=== PATIENT | female | born 1935 | race Hispanic/Latino ===

== ENCOUNTER 2016-11-10 14:13 | Inpatient (IN) | payer MEDICARE ==
[2016-11-10 14:33] VITALS: BMI 49.4
--- NOTE | 2016-11-10 15:25 | RAD ---
HISTORY: cough COMPARISON: 01/12/2015 FINDINGS: LUNGS: There is a patchy infiltrate in the right lower lobe consistent with pneumonia PLEURA: No significant pleural effusion identified, no pneumothorax apparent. CARDIOVASCULAR: Normal. OSSEOUS STRUCTURES: No significant abnormalities. VISUALIZED UPPER ABDOMEN: Normal. OTHER FINDINGS: None. IMPRESSION: There is a patchy infiltrate in the right lower lobe consistent with pneumonia
--- NOTE | 2016-11-10 15:38 | ED PDOC ---
Arrival/HPI - General Chief Complaint: Lower Extremity Problem/Injury Time Seen by Provider: 11/10/16 14:20 - History of Present Illness Narrative History of Present Illness (Text): 11/10/16 15:35 80-year-old female presents the emergency department with 1 month duration worsening shortness of breath, dyspnea on exertion, bilateral lower extremity swelling, and weight gain. No relieving or exacerbating factors. Patient denies chest pain, denies fevers or chills, no other complaints. Past Medical History - Provider Review Nursing Documentation Reviewed: Yes - Infectious Disease Hx of Infectious Diseases: None - Tetanus Immunization Tetanus Immunization: Unknown - Cardiac Hx Cardiac Disorders: Yes Hx Hypertension: Yes - Pulmonary Hx Respiratory Disorders: No - Neurological Hx Neurological Disorder: No - HEENT Hx Epistaxis: (today) - Renal Hx Renal Disorder: No - Endocrine/Metabolic Hx Endocrine Disorders: Yes Hx Diabetes Mellitus Type 2: Yes - Hematological/Oncological Hx Blood Disorders: No - Integumentary Hx Dermatological Disorder: Yes Hx Cellulitis: Yes (both legs) - Musculoskeletal/Rheumatological Hx Musculoskeletal Disorders: No Hx Falls: No - Gastrointestinal Hx Gastrointestinal Disorders: No - Genitourinary/Gynecological Hx Genitourinary Disorders: No - Psychiatric Hx Psychophysiologic Disorder: No Hx Substance Use: No - Surgical History Hx Section: Yes Hx Orthopedic Surgery: Yes Hx Tonsillectomy: Yes - Anesthesia Hx Anesthesia: Yes Hx Anesthesia Reactions: No Hx Malignant Hyperthermia: No - Suicidal Assessment Feels Threatened In Home Enviroment: No Family/Social History Family/Social History: No Known Family HX Smoking Status: Never Smoked Hx Alcohol Use: No Hx Substance Use: No Hx Substance Use Treatment: No Allergies/Home Meds Allergies/Adverse Reactions: Allergies No Known Allergies Allergy (Verified 11/10/16 14:33) Home Medications: Home Meds Medication Instructions Recorded Confirmed Digoxin [Lanoxin] 125 mcg PO DAILY 11/10/16 11/10/16 Furosemide [Lasix] 40 mg PO DAILY 11/10/16 11/10/16 [place]-3 Fatty Acids [Fish Oil] 1,000 mg PO BID 11/10/16 11/10/16 Valsartan [Diovan] 320 mg PO DAILY 11/10/16 11/10/16 Warfarin [Coumadin] 3 mg PO DAILY 11/10/16 11/10/16 diltiaZEM [Cardizem] 360 mg PO DAILY 11/10/16 11/10/16 Physical Exam - Physical Exam Narrative Physical Exam (Text): - Review of Systems Constitutional: Normal. absent: Fatigue, Weight Change, Fevers Eyes: Normal ENT: denies sore throat, denies tristhmus Respiratory: Dyspnea on exertion absent: Cough, Sputum Cardiovascular: Lower extremity swelling. absent: Chest Pain, Palpitations, Syncope Gastrointestinal: Normal. absent: Abdominal Pain, Diarrhea, Nausea, Vomiting Genitourinary: Normal. absent: Dysuria, Frequency, Hematuria, vaginal bleeding Musculoskeletal: Normal. absent: Arthralgias, Back Pain, Neck Pain Skin: no rashes, no erythema Neurological: absent: Focal Weakness Endocrine: Normal Hemo/Lymphatic: Normal Psychiatric: No suicidal or homicidal ideations Physical exam Patient appears age appropriate in no distress, speaking full sentences without difficulty - Systems Exam Head: Present: Atraumatic, Normocephalic Pupils: Present: PERRL Extroacular Muscles: Present: EOMI Conjunctiva: Present: Normal Mouth: Present: Moist Mucous Membranes Neck: Present: Normal Range of Motion. No: MIDLINE TENDERNESS, Paraspinal Tenderness Respiratory/Chest: Present: Clear to Auscultation, Good Air Exchange. No: Respiratory Distress, Accessory Muscle Use, Tachypneic Cardiovascular: Present: Regular Rate and Rhythm, Normal S1, S2, Peripheal Pulses Present. No: Murmurs Abdomen: Present: Normal Bowel Sounds. No: Tenderness, Distention, Peritoneal Signs, Rebound, Guarding Back: Present: Normal Inspection. No: Midline Tenderness, Paraspinal Tenderness Upper Extremity: Present: Normal Inspection. No: Cyanosis, Edema Lower Extremity: Present: Bilateral pitting edema with venous stasis dermatitis changes Neurological: Present: GCS=15, Speech Normal, cranial nerves II through XII fully intact with no cerebellar abnormality, neurosensory fully intact. No focal neurological deficits. Skin: Present: Warm, Dry, Normal Color. No: Rashes Lymphatic: Present: OX3, NI, NC Psychiatric: Present: Alert, Oriented x 3, Normal Insight, Normal Concentration Vital Signs Reviewed: Yes Vital Signs Temp Pulse Resp BP Pulse Ox 11/10/16 17:20 151/81 H 11/10/16 14:35 97.8 F 84 16 149/77 96 Temperature: Afebrile Blood Pressure: Normal Pulse: Regular Respiratory Rate: Normal Appearance: Positive for: Well-Appearing Pain Distress: None Mental Status: Positive for: Alert and Oriented X 3 Medical Decision Making ED Course and Treatment: 11/10/16 15:38 80-year-old female with dyspnea exertion, weight gain, bilateral lower extremity swelling on examination. Differential diagnosis includes but not limited to: CHF versus renal insufficiency versus venous insufficiency Discussed with Dr. Sanchez EKG shows a irregular rhythm, atrial fibrillation, rate controlled, no ST segment elevations. No changes versus 01/12/15. Interpreted by me. 11/10/16 16:21 CXR Internet Researcher : Jesus Tyson MD IMPRESSION: There is a patchy infiltrate in the right lower lobe consistent with pneumonia 11/10/16 17:[address] Sanchez, plan to admit to telemetry for community acquired pnemonia, CHF, venous stasis dermatitis pt has neg. DVT b/l per prelim US read pt and family aware of and agree with plan US Extremities Internet Researcher : Darinel Marks MD IMPRESSION: No sonographic evidence for deep venous thrombosis in the visualized segments of both lower extremities. Limited study. - Lab Interpretations Lab Results: 11/10/16 15:45 11/10/16 15:45 Lab Results 11/10/16 15:45: WBC 6.6, RBC 4.31, Hgb 12.7, Hct 37.5, MCV 87.0, MCH 29.5, MCHC 33.9, RDW 15.0 H, Plt Count 239, MPV 9.5, Gran % 67.7, Lymph % (Auto) 25.6, [place] % (Auto) 5.5, Eos % (Auto) 0.9 L, Baso % (Auto) 0.3, Gran # 4.47, Lymph # 1.7, [place] # 0.4, Eos # 0.1, Baso # 0.02, PT 19.1 H, INR 1.77 H, APTT 32.5 H, Sodium 138, Potassium 4.9, Chloride 101, Carbon Dioxide 27, Anion Gap 15, BUN 20 , Creatinine 0.8, Est GFR ( Amer) > 60, Est GFR (Non-Af Amer) > 60, Random Glucose 129 H, Calcium 9.7, Total Bilirubin 0.8, AST 33, ALT 43, Alkaline Phosphatase 93, Lactate Dehydrogenase 655, Total Creatine Kinase 67, Troponin I < 0.01, NT-Pro-B Natriuret Pep 761 H, Total Protein 8.0, Albumin 4.3 , Globulin 3.7, Albumin/Globulin Ratio 1.2 - RAD Interpretation Radiology Orders: 11/10/16 14:49 CHEST PORTABLE [RAD] Stat 11/10/16 15:30 DUPLEX LOWER EXTRM VEIN BILAT [US] Stat - Medication Orders Current Medication Orders: Discontinued Medications Aspirin (Aspirin Chewable) 324 mg PO STAT STA Stop: 11/10/16 15:30 Last Admin: 11/10/16 16:56 Dose: 324 MG Furosemide (Lasix) 40 mg IVP STAT STA Stop: 11/10/16 15:30 Last Admin: 11/10/16 17:20 Dose: 40 MG MAR Blood Pressure Document 11/10/16 17:20 HI (Rec: 11/10/16 17:[id number]) Blood Pressure Blood Pressure (100/60-150/90) 151/81 IVP Administration Document 11/10/16 17:20 HI (Rec: 11/10/16 17:21 [place] [id number]) Charges for Administration # of IVP Administrations 1 Azithromycin (Zithromax 500mg In Ns) 250 mls @ 166.667 mls/hr IV STAT STA PRN Reason: Protocol Stop: 11/10/16 17:48 Ceftriaxone Sodium (Rocephin 1 Gram Ivpb) 100 mls @ 200 mls/hr IV STAT STA PRN Reason: Protocol Stop: 11/10/16 16:48 Last Admin: 11/10/16 17:21 Dose: 200 MLS/HR eMAR Start Stop Document 11/10/16 17:21 HI (Rec: 11/10/16 17:21 [place] [id number]) Intravenous Solution Start Date 11/10/16 Start Time 17:21 Nitroglycerin (Nitrostat Sl Tab) 0.3 mg SL STAT STA Stop: 11/10/16 15:30 Last Admin: 11/10/16 17:21 Dose: 0.3 MG Disposition/Present on Arrival - Present on Arrival Any Indicators Present on Arrival: No History of DVT/PE: No History of Uncontrolled Diabetes: No Urinary Catheter: No History of Decub. Ulcer: No History Surgical Site Infection Following: None - Disposition Have Diagnosis and Disposition been Completed?: Yes Diagnosis: Pneumonia Disposition: HOSPITALIZED Disposition Time: 17:08 Patient Plan: Admission Patient Problems: Current Active Problems Problem Status Diagnosed Pneumonia Acute Condition: FAIR
[2016-11-10 15:56] LABS: ADD MANUAL DIFF? NO
[2016-11-10 16:02] LABS: BASO # 0.02 K/mm3 (0.0-2.0); BASO % 0.3 % (0.0-3.0); EOS # 0.1 (0.0-0.7); EOS % 0.9 % (1.5-5.0); GRAN # 4.47 (1.4-6.5); GRAN % 67.7 % (50.0-68.0); HEMATOCRIT 37.5 % (36.0-48.0); LYMPH # 1.7 (1.2-3.4); LYMPH % 25.6 % (22.0-35.0); MEAN CORPUSCULAR HEMOGLOBIN 29.5 pg (25.0-35.0); MEAN CORPUSCULAR HGB CONC 33.9 g/dl (31.0-37.0); MEAN PLATELET VOLUME 9.5 fl (7.0-11.0); MONO # 0.4 (0.1-0.6); MONO % 5.5 % (1.0-6.0); PLATELET COUNT 239 10^3/uL (120.0-450.0); WHITE BLOOD COUNT 6.6 10^3/ul (4.5-11.0)
[2016-11-10 16:11] LABS: INR 1.77 (0.93-1.08); PARTIAL THROMBOPLASTIN TIME 32.5 Seconds (23.7-30.8)
[2016-11-10] MEDS ORDERED: cefTRIAXone 1 gm 100 ML IV STA (16:19)
[2016-11-10] MEDS ORDERED: Azithromycin 500MG/NS 250ml 250 ML IV STA (16:19)
[2016-11-10 16:20] LABS: ALB/GLOB RATIO 1.2 (1.1-1.8); ALKALINE PHOSPHATASE 93 U/L (38-133); ALT/SGPT 43 U/L (7-56); AST/SGOT 33 U/L (15-39); BILIRUBIN,TOTAL 0.8 mg/dL (0.2-1.3); BLOOD UREA NITROGEN 20 mg/dL (7-21); CALCIUM 9.7 mg/dL (8.4-10.5); CARBON DIOXIDE 27 mmol/L (21-33); CHLORIDE 101 mmol/L (98-107); GFR AFRICAN-AMERICAN > 60; GLUCOSE,RANDOM 129 mg/dL (70-110); POTASSIUM 4.9 mmol/L (3.6-5.0); SODIUM 138 mmol/L (132-148)
[2016-11-10 16:33] LABS: TROPONIN I < 0.01 ng/mL
--- NOTE | 2016-11-10 17:52 | US ---
HISTORY: Leg pain and swelling. Evaluate for DVT PHYSICIAN(S): Darinel Goddard MD. TECHNIQUE: Duplex sonography and color-flow Doppler with graded compression were used to evaluate the deep venous systems of both lower extremities. The exam is very limited by body habitus and edema. FINDINGS: The visualized deep venous systems of both lower extremities are sonographically normal and compressible. Normal wave forms and augmentation are seen. There is no sonographic evidence for deep venous thrombosis in the visualized segments of both lower extremities. IMPRESSION: No sonographic evidence for deep venous thrombosis in the visualized segments of both lower extremities. Limited study.
--- NOTE | 2016-11-10 20:02 | HP ---
HISTORY OF PRESENT ILLNESS: This is an 80-year-old female presented to the office today with at delmy t a 2-week history of increasing swelling and edema of the lower extremities associated with a raised , red, pebbly rash on both lower extremities. She also complains of difficulty walking and she also states that she has been gaining weight. She also states that her sugars have been elevated. She al so states that she has been having some exertional dyspnea. She denies any history of chest pain, fe michael, chills or cough. PAST MEDICAL HISTORY: Urinary tract infection, obesity, cellulitis of the lower extremities, hyperte nsion, congestive heart failure, atrial fibrillation. SOCIAL HISTORY: She is a nonsmoker, nondrinker, nondrug user. ALLERGY HISTORY: She denies. HOME MEDICATIONS: Consist of Cardizem 360 mg daily, fish oil 1000 mg b.i.d., digoxin 125 mcg daily, Diovan 320 mg daily, Lasix 40 mg daily and warfarin 3 mg daily. REVIEW OF SYSTEMS: Twelve systems are reviewed. Pertinent findings are that the patient has some ex ertional dyspnea. There is marked edema of the lower extremities with erythema and a raised pebbly r reuben on both lower legs. PHYSICAL EXAMINATION: VITAL SIGNS: Blood pressure is 149/77, oxygen saturation is reported at 96% on room air. Her respir atory rate is 16, her pulse is 84, temperature is 97.8. GENERAL: She is alert and oriented x 3. NECK: Supple. LUNGS: Show rhonchi with diminished breath sounds at the bases, right more than left. HEART: Irregular S1, S2 rhythm with a grade II/ systolic murmur. ABDOMEN: Soft, obese with positive bowel sounds. EXTREMITIES: Shows 3+ edema with erythema of the lower extremities with a raised pebbly rash. LABORATORY DATA: Shows normal electrolytes. BUN is 20, creatinine is 0.8. Random blood sugar is 12 9. Troponin is less than 0.01. She has a BNP of 761. Her PT is 19.1 with an INR 1.77 and a PTT is 32.5. CBC shows a WBC of 6.6, RBC 4.31, hemoglobin 12.7, hematocrit 37.5, platelet count 239. Ultra sound of the lower extremities to rule out DVT is reported as being negative. A chest x-ray read by radiology is read as showing an infiltrate in the right lower lobe of the lung. IMPRESSION: An 80-year-old female with exertional dyspnea, edema of the lower extremities, erythema of the lower extremities with a pebbly rash. She also states that she has been getting some discomfo rt in the right shoulder with elevation. 1. Right lung infiltrate. Must consider community-acquired pneumonia versus other opportunistic inf ections. 2. Elevated BNP with atrial fibrillation and edema of the lower extremities, must consider CHF in th e setting of a patient with a history of atrial fibrillation and arteriosclerotic heart disease and v alvular heart disease. 3. Non-insulin dependent diabetes. 4. Cellulitis of the lower extremities. The patient will get rizzo cultured. Consults will be requested with appropriate consultants. The patient has been requested to be on tel emetry given her clinical status and the Emergency Room physician concurs, actually the Emergency Kathryn pedroza physician recommended it. eBbe Sanchez MD cc: [id number] TT: 11/10/2016 20:02:21 wi
--- NOTE | 2016-11-10 21:41 | CARD ---
APPROVED REPORT EKG Measurement Heart [id number] <Conclusion> Atrial fibrillation Rightward axis Possible Anterior infarct, age undetermined Abnormal ECG
[2016-11-11 07:06] LABS: INR 1.63 (0.93-1.08); PARTIAL THROMBOPLASTIN TIME 30.7 Seconds (23.7-30.8)
[2016-11-11 07:12] LABS: HEMATOCRIT 35.8 % (36.0-48.0); MEAN CELL VOLUME 87.5 fL (80.0-105.0); MEAN CORPUSCULAR HEMOGLOBIN 29.3 pg (25.0-35.0); MEAN CORPUSCULAR HGB CONC 33.5 g/dl (31.0-37.0); MEAN PLATELET VOLUME 9.8 fl (7.0-11.0); RED CELL DISTRIBUTION WIDTH 15.3 % (11.5-14.5)
[2016-11-11 07:25] LABS: BLOOD UREA NITROGEN 18 mg/dL (7-21); CARBON DIOXIDE 30 mmol/L (21-33); CHLORIDE 104 mmol/L (95-110); GFR AFRICAN-AMERICAN > 60; GLUCOSE,RANDOM 130 mg/dL (70-110); SODIUM 142 mmol/L (132-148)
[2016-11-11] MEDS ORDERED: MethylPREDNISolone Depo 40 mg/ml Inj IM ONE (09:11)
[2016-11-11] MEDS ORDERED: Bupivacaine 0.5% Inj(30mL) IJ ONE (09:11)
--- NOTE | 2016-11-11 09:32 | PN ---
DATE: 11/11/2016 An 80-year-old female. Nursing staff relates that on telemetry, there were no particular problems du ring the night, although she did complain of some right shoulder pain. This morning, she says that h er knee is feeling better. PHYSICAL EXAMINATION: VITAL SIGNS: She has got a temp of 98.2, her pulse is 73, her blood pressure is 148/70, her oxygen s aturation is 98% on room air, her respiratory rate is 19. GENERAL: She is alert and oriented x 3. NECK: Supple. LUNGS: Show bibasilar rhonchi, right more than left with diminished breath sounds at the bases. HEART: Has an irregular S1, S2 rhythm. ABDOMEN: Obese, soft with positive bowel sounds. EXTREMITIES: Show edema with a raised pebbly rash and mild erythema. LABORATORY DATA: Shows a WBC of 6, RBC 4.09, hemoglobin 12, hematocrit 35.8, platelet count 229. Th e PT is 17.6 with an INR 1.63, the PTT is 30.7. Chemistry shows normal electrolytes, the BUN is 18, creatinine is 0.8, random blood sugar was 130. Her digoxin level was 0.8. ASSESSMENT AND PLAN: 1. The patient's admission chest x-ray was read as showing a right lower lobe infiltrate. We will g et a PA and a lateral film. 2. Infectious disease is seeing the patient and is continuing the Rocephin and adding doxycycline. Procalcitonin has been ordered and cultures are pending. 3. Atrial fibrillation with edema of lower extremities with exertional dyspnea and mild elevation of the BNP. Cardiology consult is pending. 4. Rash of the lower extremities with raised pebbly rash and erythema, cellulitis, stasis dermatitis . We will get podiatry evaluation for wound care. Case has also been discussed with infectious dise ase. 5. Non-insulin dependent diabetes with a blood sugar of 130. Last hemoglobin A1c was 6.4. We will repeat the hemoglobin A1c and monitor the patient's blood sugars. She is on a cardiac diet with low carbohydrate consistency. Physical therapy request has been made. X-rays of the right shoulder and left knee will be requested and ortho evaluation as the patient sta baudilio that she is having pain when she raises her right arm and she has been having difficulty walking because of pain in the left knee. Bebe Sanchez MD cc: [id number] TT: 11/11/2016 09:31:55 Confirmation # [id number] Dictation # [id number] en
[2016-11-11] MEDS: diltiaZEM 180 mg/24 Hours CD Cap PO SCH (09:42)
--- NOTE | 2016-11-11 09:53 | CON ---
DATE: 11/11/2016 INDICATIONS: Shortness of breath, edema, pneumonia, atrial fibrillation. This is an 80-year-old woman admitted with a several-week history of increasing edema, dyspnea on exertion, was sent to the Emergency Room and found to have an infiltrate in the right lung as well as chronic atrial fibrillation, lower extremity edema with chronic cellulitic changes of both lower extremities. She reports weight gain, difficulty ambulating and discomfort in her legs. There is no orthopnea, PND, syncope, presyncope, lightheadedness, dizziness, vertigo, fever, chills, sputum production, hemoptysis, abdominal pain, nausea, vomiting, diarrhea, constipation, or melena. PAST MEDICAL HISTORY: Notable for chronic atrial fibrillation, she is on warfarin, chronic edema and cellulitic changes of the lower extremities, obesity , hypertension, diabetes, congestive heart failure, UTIs. There is no history of rheumatic fever, myocardial infarction, angina, stroke, TIA, gout. MEDICATIONS: At the time of admission include diltiazem, warfarin, Diovan, fish oil, digoxin and Lasix. ALLERGIES: There are no medication allergies. SOCIAL HISTORY: She lives at home. She is ambulatory. She dose not smoke. She does not drink alcohol significantly. FAMILY HISTORY: Noncontributory. REVIEW OF SYSTEMS: A 10-point otherwise unremarkable except as noted above. PHYSICAL EXAMINATION: GENERAL: She is a well-developed, elderly woman, sitting on her bed, on telemetry, in no acute distress. VITAL SIGNS: Notable for atrial fibrillation with a moderate ventricular response of 61-73 beats per minute. She is afebrile, blood pressure 148/70, respirations 19, O2 sat 98%. HEENT: Reveals no neck vein distention, thyromegaly, carotid bruits. Mucous membranes moist. Conjunctivae pink. NECK: Supple. LUNG MOSQUERA: Rhonchi, especially at the right base. HEART: Revealed an irregular rhythm, normal first and second heart sounds. Soft systolic murmur along the left sternal border. PMI not palpable. ABDOMEN: Obese, soft, bowel sounds present. No mass, organomegaly, tenderness , rebound, guarding, CVA tenderness or palpable abdominal aortic aneurysm. EXTREMITIES: Reveals chronically swollen, cellulitic lower extremities. NEUROLOGIC: She was awake, alert and oriented. PSYCHIATRIC: Normal as to mood and affect. SKIN: Chronic cellulitic changes both lower extremities from the ankles to the knees. LABORATORY AND IMAGING: A portable chest x-ray reveals a right lower lobe pneumonia. Extremity ultrasound reveals limited study, no DVT. EKG demonstrates atrial fibrillation with ST-T wave changes, basically unchanged from a prior EKG. White count normal, hemoglobin 12, hematocrit 35.8, platelet count normal. PT 19.1, repeat 17.6. INR 1.77, repeat 1.63. PTT 32.5, repeat 30.7. Electrolytes, BUN, creatinine, blood sugars unremarkable. LFTs unremarkable. CK 67. Troponin less than 0.01. BNP 761. Digoxin level 0.8. IMPRESSION: The patient is an 80-year-old woman with chronic atrial fibrillation, chronic lower extremity edema, admitted with increasing edema, dyspnea and pneumonia based on a chest x-ray. At this time, I agree with current plan. She is on telemetry. She has been cultured. She is getting antibiotics. There is an ID consultation. Her INR was low. She is getting extra warfarin. We will monitor the INRs on a daily basis while she is in the hospital and getting antibiotics. We will continue Cardizem, Diovan, digoxin. She is getting IV Lasix. We will monitor I's and O' s. We will check stool for occult blood. I will order an echocardiogram. We will monitor daily weights. She can be out of bed. I will follow along with you. I will make additional recommendations based on her clinical course. Anurag Jordan MD cc: [id number] TT: 11/11/2016 09:52:46 Confirmation # [id number] Dictation # [id number] en MTDD
--- NOTE | 2016-11-11 09:57 | CON ---
DATE: 11/11/2016 LOCATION: Room 276, bed 2. She is an 80-year-old female who came in the hospital. Consult ordered by Dr. Sanchez for right shoul genevieve pain and right knee pain. Presently, the patient is sitting in bed and experiencing some pain in the right shoulder with trigger point tenderness subacromial space and over the anterior capsule. S he has limited range of motion with pain with cross arm motion of that right shoulder, and the pain r adiates to her trapezius area and to the mid humerus area. This feels like it is clinically of bursi tis condition. We are going to get an x-ray to see if there is any calcium deposits in the right carine ulder or evidence of AC joint arthritis. 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 She also has right knee pain. I am going to order x-rays of her shoulder , and the knee was already ordered. Will reevaluate her this afternoon after the x-rays and possibly give her a Depo-Medrol injection if she needs it. Will start some gentle physical therapy for the b ursitis of right shoulder. Will see how she does with the cortisone shot later. Jesus Asher DO cc: [id number] TT: 11/11/2016 09:57:16 Confirmation # [id number] Dictation # [id number] rosita
--- NOTE | 2016-11-11 12:11 | RAD ---
PROCEDURE: Left Knee Radiographs. HISTORY: Pain. COMPARISON: None. FINDINGS: BONES: Normal. No fracture. JOINTS: There is joint space narrowing in the medial compartment. JOINT EFFUSION: None. OTHER FINDINGS: None. IMPRESSION: No acute fracture
--- NOTE | 2016-11-11 12:12 | RAD ---
PROCEDURE: Radiographs of the Right Shoulder HISTORY: pain COMPARISON: No prior. FINDINGS: BONES: Normal. No fracture. JOINTS: Normal. Glenohumeral and acromioclavicular joints preserved. No osteoarthritis. SOFT TISSUES: Normal. OTHER FINDINGS: None. IMPRESSION: No acute findings
--- NOTE | 2016-11-11 12:13 | RAD ---
HISTORY: CHF COMPARISON: 11/10/2016 TECHNIQUE: Chest PA and lateral FINDINGS: LUNGS: Improving infiltrate in the right lower lobe PLEURA: No significant pleural effusion identified. No pneumothorax apparent. CARDIOVASCULAR: Normal. OSSEOUS STRUCTURES: No significant abnormalities. VISUALIZED UPPER ABDOMEN: Normal. OTHER FINDINGS: None. IMPRESSION: Improving infiltrate in the right lower lobe
[2016-11-11] MEDS: cefTRIAXone 1 gm 100 ML IVPB SCH (13:04)
[2016-11-11] MEDS: Insulin Reg-LOW-Coverage SC SCH ×3 (13:04→22:15)
[2016-11-11] MEDS: Digoxin 125 mcg (0.125 mg) Tab PO SCH (13:32)
--- NOTE | 2016-11-11 14:18 | PROCN ---
DATE: 11/11/2016 ROOM: 276, bed 1 I had seen her this morning for right shoulder pain and to a lesser extent, knee pain. She just has recently had her x-rays, so I came back to see her for mainly the right shoulder pain, which x-ray sh ows osteoarthritis of AC joint, subacromial impingement and mild osteoarthritis right glenohumeral chad int. No evidence of rotator cuff tendinopathy, but I feel as though she has subacromial bursitis wit h discomfort with range of motion and increased pain with crossed arm test, which is associated with AC joint arthritis of that right shoulder. So I took the opportunity to inject the her right shoulde r with Depo-Medrol and Marcaine for symptomatic relief and hopefully that will help her. Her knee al so on the left side has osteoarthritis and I will get an x-ray of the right knee because that looks l yvette it has osteoarthritis too, just by the attitude of the knee with its bulbous and boggy synovium, but she has been having injections help her knees as an outpatient, as I do not want to add to that a s too much cortisone can aggravate the cartilage by itself and she was told she needs a total knee, b ut I do not think she is a surgical candidate at this time. So, I just injected the right shoulder b ursitis, which has symptoms of pain and weakness with Depo-Medrol and Marcaine. I will see how she i s tomorrow. Jesus Asher DO cc: [id number] TT: 11/11/2016 14:17:46 Confirmation # [id number] Dictation # [id number] en
--- NOTE | 2016-11-11 14:19 | CP.PCM.CON ---
<Jenelle Mcduffie - Last Filed: 11/11/16 14:13> History of Present Illness - History of Present Illness History of Present Illness: 80 y/o female with pmhx of CHT, HTN, afib, UTI, obesity, cellulitis of lower extremities seen at bedside with attending Dr. Alicea for bilateral leg swelling and redness. Patient states that her legs are mildly itchy and she scratches her legs, and mildly painful. Patient states that she has been admitted in the past and her legs were wrapped with silvadene and compressive dressings which helped the redness and swelling. Patient denies any other pedal or lower extremity complaints. She denies n/f/v/c/d/cp. Review of Systems - Constitutional Constitutional: As Per HPI Past Patient History - Infectious Disease Hx of Infectious Diseases: None - Tetanus Immunizations Tetanus Immunization: Unknown - Past Social History Smoking Status: Never Smoked - CARDIAC Hx Cardiac Disorders: Yes Hx Cardia Arrhythmia: Yes (atr. fib) Hx Congestive Heart Failure: Yes Hx Hypertension: Yes - PULMONARY Hx Respiratory Disorders: No - NEUROLOGICAL Hx Neurological Disorder: No - HEENT Hx Deafness: Yes (bilat hearing aids) Hx Epistaxis: Yes (1 year ago) - RENAL Hx Chronic Kidney Disease: No - ENDOCRINE/METABOLIC Hx Endocrine Disorders: Yes Hx Diabetes Mellitus Type 2: Yes - HEMATOLOGICAL/ONCOLOGICAL Hx Blood Disorders: No - INTEGUMENTARY Hx Dermatological Problems: Yes Other/Comment: cellulitis both lower legs - MUSCULOSKELETAL/RHEUMATOLOGICAL Hx Falls: No - GASTROINTESTINAL Hx Gastrointestinal Disorders: No - GENITOURINARY/GYNECOLOGICAL Hx Genitourinary Disorders: Yes Hx Urinary Tract Infection: Yes - PSYCHIATRIC Hx Psychophysiologic Disorder: No Hx Substance Use: No - SURGICAL HISTORY Hx Surgeries: Yes Hx Orthopedic Surgery: Yes (left knee arthroscopy) Other/Comment: tonsillectomy childhood, x1 - ANESTHESIA Hx Anesthesia: Yes Hx Anesthesia Reactions: No Hx Malignant Hyperthermia: No Meds Allergies/Adverse Reactions: Allergies Allergy/AdvReac Type Severity Reaction Status Date / Time No Known Allergies Allergy Verified 11/10/16 14:33 - Medications Medications: Current Medications Digoxin (Lanoxin) 0.125 mg PO 1400 [facility] Last Admin: 11/11/16 13:32 Dose: 0.125 mg Diltiazem HCl (Cardizem Cd) 360 mg PO DAILY [facility] Last Admin: 11/11/16 09:42 Dose: 360 mg Furosemide (Lasix) 40 mg IVP DAILY [facility] Last Admin: 11/11/16 13:33 Dose: 40 mg Ceftriaxone Sodium (Rocephin 1 Gram Ivpb) 100 mls @ 100 mls/hr IVPB DAILY [facility] PRN Reason: Protocol Last Admin: 11/11/16 13:04 Dose: 100 mls/hr Doxycycline Hyclate 100 mg/ (Sodium Chloride) 100 mls @ 100 mls/hr IVPB Q12 [facility] PRN Reason: Protocol Last Admin: 11/11/16 09:29 Dose: 100 mls/hr Insulin Human Regular (Humulin R Low) 0 units SC ACHS [facility] PRN Reason: Protocol Last Admin: 11/11/16 13:04 Dose: Not Given Valsartan (Diovan) 320 mg PO DAILY [facility] Last Admin: 11/11/16 09:42 Dose: 320 mg Warfarin Sodium (Coumadin) 4 mg PO 1800 [facility] PRN Reason: Protocol Last Admin: 11/10/16 23:08 Dose: 4 mg Warfarin Sodium (Coumadin) 5 mg PO 1800 [facility] PRN Reason: Protocol Stop: 11/11/16 18:01 Physical Exam - Constitutional Appears: Well, Non-toxic, No Acute Distress - Extremities Exam Additional comments: Vasc: DP/PT 2/4 b/l, TG wnl, CFT < 3 sec to all digits, +2 pitting edema b/l neuro: grossly diminished derm: raised, erythematous and edematous lesions on bilateral lower extremities , no open lesions, no drainage, no ascending cellulitis ortho: mild pain on palpation to anterior aspects of shins b/l - Neurological Exam Neurological exam: Alert, Oriented x3 - Psychiatric Exam Psychiatric exam: Normal Affect, Normal Mood Results - Vital Signs Recent Vital Signs: Last Vital Signs Temp 97.8 F 11/11/16 12:00 Pulse 80 11/11/16 12:00 Resp 20 11/11/16 12:00 BP 148/70 11/11/16 13:33 Pulse Ox 98 11/10/16 21:21 - Labs Result Diagrams: 11/11/16 06:15 11/11/16 06:15 Labs: Laboratory Results - last 24 hr 11/10/16 11/11/16 11/11/16 22:01 06:15 07:41 WBC 6.0 RBC 4.09 Hgb 12.0 Hct 35.8 L MCV 87.5 MCH 29.3 MCHC 33.5 RDW 15.3 H Plt Count 229 MPV 9.8 PT 17.6 H INR 1.63 H APTT 30.7 Sodium 142 Potassium 5.0 Chloride 104 Carbon Dioxide 30 Anion Gap 13 BUN 18 Creatinine 0.8 Est GFR ( Amer) > 60 Est GFR (Non-Af Amer) > 60 POC Glucose (mg/dL) 130 H 150 H Random Glucose 130 H Calcium 9.0 Assessment & Plan - Assessment and Plan (Free Text) Assessment: 80 y/o female seen at bedside for bilateral vensous stasis dermatitis/ cellulitis of lower extremities Plan: patient evaluated and chart reviewed, seen at bedside with attending Dr. Alicea labs and vitals reviewed, afebrile, WBC 6.0 continue IV abx as per PMD cleansed legs with sterile saline, applied xeroform, DSD, ANNETTE to RLE applied DSD, ANNETTE to LLE continue to keep dressings clean,dry,intact Rx bactroban topical ointment podiatry will continue to monitor while patient remains in house <Aj Alicea - Last Filed: 11/11/16 16:40> Meds - Medications Medications: Current Medications Digoxin (Lanoxin) 0.125 mg PO 1400 [facility] Last Admin: 11/11/16 13:32 Dose: 0.125 mg Diltiazem HCl (Cardizem Cd) 360 mg PO DAILY [facility] Last Admin: 11/11/16 09:42 Dose: 360 mg Furosemide (Lasix) 40 mg IVP DAILY [facility] Last Admin: 11/11/16 13:33 Dose: 40 mg Ceftriaxone Sodium (Rocephin 1 Gram Ivpb) 100 mls @ 100 mls/hr IVPB DAILY [facility] PRN Reason: Protocol Last Admin: 11/11/16 13:04 Dose: 100 mls/hr Doxycycline Hyclate 100 mg/ (Sodium Chloride) 100 mls @ 100 mls/hr IVPB Q12 [facility] PRN Reason: Protocol Last Admin: 11/11/16 09:29 Dose: 100 mls/hr Insulin Human Regular (Humulin R Low) 0 units SC ACHS [facility] PRN Reason: Protocol Last Admin: 11/11/16 13:04 Dose: Not Given Mupirocin (Bactroban Ointment) 0 gm TOP BID [facility] Valsartan (Diovan) 320 mg PO DAILY [facility] Last Admin: 11/11/16 09:42 Dose: 320 mg Warfarin Sodium (Coumadin) 4 mg PO 1800 [facility] PRN Reason: Protocol Last Admin: 11/10/16 23:08 Dose: 4 mg Results - Vital Signs Recent Vital Signs: Last Vital Signs Temp 97.8 F 11/11/16 12:00 Pulse 80 11/11/16 12:00 Resp 20 11/11/16 12:00 BP 148/70 11/11/16 13:33 Pulse Ox 98 11/10/16 21:21 - Labs Result Diagrams: 11/11/16 06:15 11/11/16 06:15 Labs: Laboratory Results - last 24 hr 11/10/16 11/11/16 11/11/16 22:01 06:15 07:41 WBC 6.0 RBC 4.09 Hgb 12.0 Hct 35.8 L MCV 87.5 MCH 29.3 MCHC 33.5 RDW 15.3 H Plt Count 229 MPV 9.8 PT 17.6 H INR 1.63 H APTT 30.7 Sodium 142 Potassium 5.0 Chloride 104 Carbon Dioxide 30 Anion Gap 13 BUN 18 Creatinine 0.8 Est GFR ( Amer) > 60 Est GFR (Non-Af Amer) > 60 POC Glucose (mg/dL) 130 H 150 H Random Glucose 130 H Hemoglobin A1c Calcium 9.0 11/11/16 11/11/16 09:30 16:12 WBC RBC Hgb Hct MCV MCH MCHC RDW Plt Count MPV PT INR APTT Sodium Potassium Chloride Carbon Dioxide Anion Gap BUN Creatinine Est GFR ( Amer) Est GFR (Non-Af Amer) POC Glucose (mg/dL) 120 H Random Glucose Hemoglobin A1c 7.0 H Calcium Attending/Attestation - Attestation I have personally seen and examined this patient.: Yes I have fully participated in the care of the patient.: Yes I have reviewed all pertinent clinical information: Yes
--- NOTE | 2016-11-11 16:03 | CP.PCM.CON ---
History of Present Illness - History of Present Illness History of Present Illness: 80 year old female with PMH of DM, HTN, morbid obesity with BMI 47, atrial fibrillation, history of UTI, S/P left knee arthroscopy came in to [facility] complaining of bilateral lower extremity swelling associated with redness of both legs. She also has some shortness of breath and dyspnea on exertion with dry cough for the past 3-4 days. She denies travel outside of [place] in the past 3 months, no wading in water or walking barefoot, no trauma to the legs, no animal contacts. She also denies fever or chills, no nausea or vomiting, no chest pain, no headache or dizziness, no abdominal pain, no dysuria , no diarrhea, no dysphagia. In the ED, CXR was done which showed a right lower lobe infiltrate. Infectious Diseases consult is requested to further evaluate and manage. Review of Systems - Review of Systems All systems: reviewed and no additional remarkable complaints except (as per HPI ) Past Patient History - Infectious Disease Hx of Infectious Diseases: None - Tetanus Immunizations Tetanus Immunization: Unknown - Past Social History Smoking Status: Never Smoked Alcohol: None Drugs: Denies Home Situation {Lives}: With Family - CARDIAC Hx Cardiac Disorders: Yes Hx Cardia Arrhythmia: Yes (atr. fib) Hx Congestive Heart Failure: Yes Hx Hypertension: Yes - PULMONARY Hx Respiratory Disorders: No - NEUROLOGICAL Hx Neurological Disorder: No - HEENT Hx Deafness: Yes (bilat hearing aids) Hx Epistaxis: Yes (1 year ago) - RENAL Hx Chronic Kidney Disease: No - ENDOCRINE/METABOLIC Hx Endocrine Disorders: Yes Hx Diabetes Mellitus Type 2: Yes - HEMATOLOGICAL/ONCOLOGICAL Hx Blood Disorders: No - INTEGUMENTARY Hx Dermatological Problems: Yes Other/Comment: cellulitis both lower legs - MUSCULOSKELETAL/RHEUMATOLOGICAL Hx Falls: No - GASTROINTESTINAL Hx Gastrointestinal Disorders: No - GENITOURINARY/GYNECOLOGICAL Hx Genitourinary Disorders: Yes Hx Urinary Tract Infection: Yes - PSYCHIATRIC Hx Psychophysiologic Disorder: No Hx Substance Use: No - SURGICAL HISTORY Hx Surgeries: Yes Hx Orthopedic Surgery: Yes (left knee arthroscopy) Other/Comment: tonsillectomy childhood, x1 - ANESTHESIA Hx Anesthesia: Yes Hx Anesthesia Reactions: No Hx Malignant Hyperthermia: No Meds Allergies/Adverse Reactions: Allergies Allergy/AdvReac Type Severity Reaction Status Date / Time No Known Allergies Allergy Verified 11/10/16 14:33 - Medications Medications: Current Medications Diltiazem HCl (Cardizem Cd) 360 mg PO DAILY [facility] Ceftriaxone Sodium (Rocephin 1 Gram Ivpb) 100 mls @ 100 mls/hr IVPB DAILY [facility] PRN Reason: Protocol Doxycycline Hyclate 100 mg/ (Sodium Chloride) 100 mls @ 100 mls/hr IVPB Q12 [facility] PRN Reason: Protocol Valsartan (Diovan) 320 mg PO DAILY [facility] Warfarin Sodium (Coumadin) 4 mg PO 1800 [facility] PRN Reason: Protocol Last Admin: 11/10/16 23:08 Dose: 4 mg Physical Exam - Constitutional Appears: Non-toxic, No Acute Distress - Head Exam Head Exam: NORMAL INSPECTION - ENT Exam ENT Exam: Mucous Membranes Moist - Neck Exam Neck exam: Negative for: Lymphadenopathy, Meningismus - Respiratory Exam Respiratory Exam: Decreased Breath Sounds - Cardiovascular Exam Cardiovascular Exam: +S1, +S2 - GI/Abdominal Exam GI & Abdominal Exam: Soft. absent: Tenderness - Extremities Exam Additional comments: both lower extremities with anterior erythema but no tenderness noted Results - Vital Signs Recent Vital Signs: Last Vital Signs Temp 98 F 11/10/16 21:59 Pulse 71 11/10/16 21:59 Resp 19 11/10/16 21:59 BP 142/67 11/10/16 21:59 Pulse Ox 98 11/10/16 21:21 - Labs Result Diagrams: 11/11/16 06:15 11/11/16 06:15 Labs: Laboratory Results - last 24 hr 11/10/16 22:01 POC Glucose (mg/dL) 130 H Assessment & Plan - Assessment and Plan (Free Text) Plan: Assessment Consider right lower lobe community-acquired pneumonia Consider venous stasis dermatitis of both lower extremities with mild cellulitis R/O acute congestive heart failure DM HTN morbid obesity with BMI 47 atrial fibrillation history of UTI S/P left knee arthroscopy Plan Started patient on Doxycycline and Rocephin pending blood cx, PCT; follow up repeat CXR done today Discussed with Dr. Sanchez Will follow clinically
[2016-11-12] MEDS: Insulin Reg-LOW-Coverage SC SCH ×4 (07:46→21:42)
--- NOTE | 2016-11-12 08:26 | CARD ---
APPROVED REPORT EXAM: Two-dimensional and M-mode echocardiogram with Doppler and color Doppler. INDICATION Atrial Fibrillation 2D DIMENSIONS Left Atrium (2D)4.8 (1.6-4.0cm)IVSd0.9 (0.7-1.1cm) LVDd5.0 (3.9-5.9cm)PWd1.1 (0.7-1.1cm) LVDs3.9 (2.5-4.0cm)FS (%) 22.7 % LVEF (%)45.4 (>50%) M-Mode DIMENSIONS Aortic Root2.70 (2.2-3.7cm)Aortic Cusp Exc.1.60 (1.5-2.0cm) Aortic Valve AoV Peak Dbdckogd727.0cm/Nasra Peak GR.14mmHg Mitral Valve MV E Bicpjgpz354.0cm/sMV A Xgzevdvo05.0cm/sE/A ratio2.6 TDI E/Lateral E'0.0E/Medial E'0.0 Tricuspid Valve TR Peak Juliifrg374lg/sRAP [id number] Peak Gr.30mmHg [id number] LEFT VENTRICLE The left ventricle is normal size. There is normal left ventricular wall thickness. The left ventricular function is normal. The left ventricular ejection fraction is within the normal range. There is normal LV segmental wall motion. RIGHT VENTRICLE The right ventricle is normal size. The right ventricular systolic function is normal. ATRIA The left atrium is moderately dilated. The right atrium size is normal. The interatrial septum is intact with no evidence for an atrial septal defect. AORTIC VALVE The aortic valve is normal in structure. No aortic regurgitation is present. There is no aortic valvular stenosis. MITRAL VALVE The mitral valve leaflets are thickened. Mitral regurgitation is moderate. TRICUSPID VALVE The tricuspid valve is normal in structure. There is mild tricuspid regurgitation. PULMONIC VALVE The pulmonary valve is normal in structure. GREAT VESSELS The aortic root is normal in size. The IVC is normal in size and collapses >50% with inspiration. PERICARDIAL EFFUSION There is no pleural effusion. There is no pericardial effusion. <Conclusion> Dilated LA. Normal LV size and systolic function. Moderate MR. Mild TR.
[2016-11-12 08:33] LABS: INR 2.06 (0.93-1.08)
[2016-11-12 08:38] LABS: BLOOD UREA NITROGEN 15 mg/dL (7-21); CALCIUM 9.3 mg/dL (8.4-10.5); CARBON DIOXIDE 28 mmol/L (21-33); CHLORIDE 103 mmol/L (95-110); GFR AFRICAN-AMERICAN > 60; GLUCOSE,RANDOM 166 mg/dL (70-110); POTASSIUM 4.6 mmol/L (3.6-5.0); SODIUM 140 mmol/L (132-148)
--- NOTE | 2016-11-12 09:45 | PN ---
DATE: 11/12/2016 An 80-year-old female admitted to [facility] with complaints of exertional dyspnea, edema of the lower extremities with rash bilaterally on the lower extremities with gait disorder, and atri al fibrillation. PHYSICAL EXAMINATION: VITAL SIGNS: This morning, her temp is 98.4. The pulse is 75. Her blood pressure is 151/84. Oxyge n saturation is reported at 97% on room air. Respiratory rate is 20. NEUROLOGIC: The patient is alert and oriented x 3. LUNGS: Show bilateral rhonchi. HEART: Has an irregular S1, S2 rhythm. ABDOMEN: Obese, soft with positive bowel sounds. EXTREMITIES: Currently wrapped with Emeka bandage. There is a slight decrease in the edema that the p atient had. LABORATORY DATA: Shows a PT of 22.3 with an INR of 2.06. Chemistry is normal electrolytes with a BU N of 15 and creatinine is 0.7. Her blood sugar was 166. Her hemoglobin A1c is 7, and her calcium is 9.3. The patient is receiving IV Lasix, being followed by cardiology. She had an elevated BNP with an inf iltrate in the right base. Chest x-ray reported yesterday as showing some slight improvement. She is being followed by cardiology. Infectious disease is also following the patient. She has been placed on Rocephin and doxycycline for presumptive community-acquired pneumonia. She is also being followed by podiatry for the local wound care of the bilateral cellulitis of the lower extremities an d the stasis dermatitis. She has been seen by orthopedics for pain in the right shoulder for which she received a cortisone in jection, and x-rays of the left knee show arthritis. X-ray of the right knee is pending. A request has been made for physical therapy, as the patient has been having difficulty ambulating. We are waiting for that evaluation. We will continue with the current medical management at this jose alejandro e. Await input from the individual consultants regarding the course of antibiotic treatment, and her level of independence with ambulating, as this was a problem when she came in. We will wait for [facility] sical therapy's evaluation. We will continue to monitor the patient's labs. All the clinical findin gs have been currently discussed with the patient. The echocardiogram report is noted, and the cardi ology consult was also noted. Bebe Sanchez MD cc: [id number] TT: 11/12/2016 09:44:13 Confirmation # [id number] Dictation # [id number]
[2016-11-12] MEDS: cefTRIAXone 1 gm 100 ML IVPB SCH (09:48)
[2016-11-12] MEDS: diltiaZEM 180 mg/24 Hours CD Cap PO SCH (09:49)
--- NOTE | 2016-11-12 13:25 | CON ---
DATE: 11/12/2016 SUBJECTIVE: The patient is seen lying in bed on telemetry. She states she is feeling better. Dyspn ea has improved and leg edema has improved as well. Legs are currently wrapped. CURRENT MEDICATIONS: Include Cardizem-CD 360 mg daily, warfarin, Diovan 320 mg daily, doxycycline, L anoxin 0.125 mg daily, Lasix 40 mg daily, and Rocephin. OBJECTIVE: GENERAL: She is an overweight middle-aged woman. VITAL SIGNS: Blood pressure 174/56 with a pulse of 76 in atrial fibrillation, respirations are 14. HEENT: No JVD. CHEST: Clear to auscultation and percussion. HEART: PMI displaced laterally with a systolic murmur noted at the apex. ABDOMEN: Soft, nontender, normoactive bowel sounds. EXTREMITIES: Both lower extremities are wrapped with mild edema above the bandage. DIAGNOSTIC DATA: Echocardiogram revealed dilated left atrium and normal LV size and systolic functio n, moderate mitral regurgitation, mild tricuspid regurgitation. INR is 2.06. Potassium 4.6. BUN an d creatinine are 15 and 0.7. Intake and output from yesterday were not accurately recorded. IMPRESSION: 1. Bilateral lower extremity cellulitis, undergoing treatment at the present time. 2. Chronic atrial fibrillation with controlled rate. 3. Moderate mitral regurgitation. 4. Infiltrate on chest x-ray. RECOMMENDATIONS: Her current medications should be continued. IV Lasix will be continued for now an d local wound care should continue as well. Sodium restriction is advised. Continued rate control t herapy and anticoagulation is appropriate. We will continue to follow and make further recommendatio ns as appropriate. Chris Heart MD cc: [id number] TT: 11/12/2016 13:24:12 Confirmation # [id number] Dictation # [id number]
[2016-11-12] MEDS: Digoxin 125 mcg (0.125 mg) Tab PO SCH (14:34)
[2016-11-12 14:36] VITALS: PULSE 75
--- NOTE | 2016-11-12 14:52 | CP.PCM.PN ---
<Jenelle Mcduffie - Last Filed: 11/12/16 14:49> Subjective - Date & Time of Evaluation Date of Evaluation: 11/12/16 Time of Evaluation: 14:49 - Subjective Subjective: 80 y/o female seen at bedside with attending Dr. Ma for bilateral leg swelling and redness.Patient's dressing remains clean,dry,intact to bilateral lower legs. patient denies any acute events overnight. She denies any pain to her legs today. Patient denies any other pedal or lower extremity complaints. She denies n/f/v/c/d/cp. Objective - Vital Signs/Intake and Output Vital Signs (last 24 hours): Temp Pulse Resp BP Pulse Ox 97.8 F 87 20 151/82 H 97 11/12/16 12:00 11/12/16 12:00 11/12/16 12:00 11/12/16 12:00 11/12/16 06:00 Intake and Output: 11/12/16 11/12/16 06:59 18:59 Intake Total 600 Output Total 600 Balance 0 - Medications Medications: Current Medications Digoxin (Lanoxin) 0.125 mg PO 1400 [facility] Last Admin: 11/12/16 14:34 Dose: 0.125 mg Diltiazem HCl (Cardizem Cd) 360 mg PO DAILY [facility] Last Admin: 11/12/16 09:49 Dose: 360 mg Furosemide (Lasix) 40 mg IVP DAILY [facility] Last Admin: 11/12/16 09:49 Dose: 40 mg Ceftriaxone Sodium (Rocephin 1 Gram Ivpb) 100 mls @ 100 mls/hr IVPB DAILY [facility] PRN Reason: Protocol Last Admin: 11/12/16 09:48 Dose: 100 mls/hr Doxycycline Hyclate 100 mg/ (Sodium Chloride) 100 mls @ 100 mls/hr IVPB Q12 [facility] PRN Reason: Protocol Last Admin: 11/12/16 09:49 Dose: 100 mls/hr Insulin Human Regular (Humulin R Low) 0 units SC ACHS [facility] PRN Reason: Protocol Last Admin: 11/12/16 12:04 Dose: 2 units Mupirocin (Bactroban Ointment) 0 gm TOP BID [facility] Last Admin: 11/12/16 09:51 Dose: 1 u Valsartan (Diovan) 320 mg PO DAILY [facility] Last Admin: 11/12/16 09:49 Dose: 320 mg Warfarin Sodium (Coumadin) 3 mg PO 1800 [facility] PRN Reason: Protocol Stop: 11/12/16 18:01 - Labs Labs: 11/11/16 06:15 11/12/16 07:00 PT 22.3 Seconds (9.9-11.8) H 11/12/16 07:00 INR 2.06 (0.93-1.08) H 11/12/16 07:00 APTT 30.7 Seconds (23.7-30.8) 11/11/16 06:15 - Constitutional Appears: Well, Non-toxic, No Acute Distress - Extremities Exam Additional comments: Vasc: DP/PT 2/4 b/l, TG wnl, CFT < 3 sec to all digits, +2 pitting edema b/l neuro: grossly diminished derm: raised, erythematous and edematous lesions on bilateral lower extremities , no open lesions, no drainage, no ascending cellulitis ortho: mild pain on palpation to anterior aspects of shins b/l - Neurological Exam Neurological Exam: Alert, Awake, Oriented x3 - Psychiatric Exam Psychiatric exam: Normal Affect, Normal Mood Assessment and Plan - Assessment and Plan (Free Text) Assessment: 80 y/o female seen at bedside for bilateral vensous stasis dermatitis/ cellulitis of lower extremities, resolving Plan: patient evaluated and chart reviewed, seen at bedside with attending Dr. Ma labs and vitals reviewed, afebrile continue IV abx as per PMD applied kerlix, ANNETTE to b/l lower extremities continue to keep dressings clean,dry,intact Rx bactroban topical ointment will fit for compression stockings tomorrow continue to keep legs elevated podiatry will continue to monitor while patient remains in house <Windy Ma - Last Filed: 11/14/16 12:56> Objective - Vital Signs/Intake and Output Vital Signs (last 24 hours): Temp Pulse Resp BP Pulse Ox 97.3 F L 100 H 22 144/77 98 11/13/16 12:00 11/13/16 12:00 11/13/16 12:00 11/13/16 12:00 11/13/16 05:13 - Labs Labs: 11/11/16 06:15 11/13/16 10:45 PT 25.9 Seconds (9.9-11.8) H 11/13/16 07:30 INR 2.40 (0.93-1.08) H 11/13/16 07:30 APTT 30.7 Seconds (23.7-30.8) 11/11/16 06:15 Attending/Attestation - Attestation I have personally seen and examined this patient.: Yes I have fully participated in the care of the patient.: Yes I have reviewed all pertinent clinical information, including history, physical exam and plan: Yes
--- NOTE | 2016-11-12 15:48 | CP.PCM.PN ---
Subjective - Date & Time of Evaluation Date of Evaluation: 11/12/16 Time of Evaluation: 10:40 - Subjective Subjective: Comfortable in bed, not in distress. No fevers. Objective - Vital Signs/Intake and Output Vital Signs (last 24 hours): Temp Pulse Resp BP Pulse Ox 97.8 F 87 20 151/82 H 97 11/12/16 12:00 11/12/16 12:00 11/12/16 12:00 11/12/16 12:00 11/12/16 06:00 Intake and Output: 11/12/16 11/12/16 06:59 18:59 Intake Total 600 Output Total 600 Balance 0 - Medications Medications: Current Medications Digoxin (Lanoxin) 0.125 mg PO 1400 [facility] Last Admin: 11/12/16 14:34 Dose: 0.125 mg Diltiazem HCl (Cardizem Cd) 360 mg PO DAILY [facility] Last Admin: 11/12/16 09:49 Dose: 360 mg Furosemide (Lasix) 40 mg IVP DAILY [facility] Last Admin: 11/12/16 09:49 Dose: 40 mg Ceftriaxone Sodium (Rocephin 1 Gram Ivpb) 100 mls @ 100 mls/hr IVPB DAILY JANELL PRN Reason: Protocol Last Admin: 11/12/16 09:48 Dose: 100 mls/hr Doxycycline Hyclate 100 mg/ (Sodium Chloride) 100 mls @ 100 mls/hr IVPB Q12 JANE[facility] PRN Reason: Protocol Last Admin: 11/12/16 09:49 Dose: 100 mls/hr Insulin Human Regular (Humulin R Low) 0 units SC ACHS JANELL PRN Reason: Protocol Last Admin: 11/12/16 12:04 Dose: 2 units Mupirocin (Bactroban Ointment) 0 gm TOP BID [facility] Last Admin: 11/12/16 09:51 Dose: 1 u Valsartan (Diovan) 320 mg PO DAILY [facility] Last Admin: 11/12/16 09:49 Dose: 320 mg Warfarin Sodium (Coumadin) 3 mg PO 1800 ONE PRN Reason: Protocol Stop: 11/12/16 18:01 - Labs Labs: 11/11/16 06:15 11/12/16 07:00 PT 22.3 Seconds (9.9-11.8) H 11/12/16 07:00 INR 2.06 (0.93-1.08) H 11/12/16 07:00 APTT 30.7 Seconds (23.7-30.8) 11/11/16 06:15 - Constitutional Appears: Non-toxic, No Acute Distress - Head Exam Head Exam: NORMAL INSPECTION - ENT Exam ENT Exam: Mucous Membranes Moist - Neck Exam Neck Exam: absent: Lymphadenopathy, Meningismus - Respiratory Exam Respiratory Exam: Decreased Breath Sounds - Cardiovascular Exam Cardiovascular Exam: +S1, +S2 - GI/Abdominal Exam GI & Abdominal Exam: Soft. absent: Tenderness Assessment and Plan - Assessment and Plan (Free Text) Plan: Assessment R/O right lower lobe community-acquired pneumonia Consider venous stasis dermatitis of both lower extremities with mild cellulitis R/O acute congestive heart failure DM HTN morbid obesity with BMI 47 atrial fibrillation history of UTI S/P left knee arthroscopy Plan continue Doxycycline and Rocephin (day 2); blood cx negative x 1 day, PCT is < 0.05; if cultures continue to be negative, will d/c Rocephin and continue only on Doxycycline to complete a 4-7 day course Will continue to follow clinically
[2016-11-13 05:14] VITALS: O2SAT 98
[2016-11-13 08:12] LABS: INR 2.4 (0.93-1.08)
[2016-11-13] MEDS: Insulin Reg-LOW-Coverage SC SCH ×2 (08:20→12:05)
--- NOTE | 2016-11-13 08:23 | CP.PCM.PN ---
<RetaJenelle - Last Filed: 11/13/16 08:20> Subjective - Date & Time of Evaluation Date of Evaluation: 11/13/16 Time of Evaluation: 08:20 - Subjective Subjective: 80 y/o female seen at bedside with attending Dr. Ma for bilateral leg swelling and redness.Patient's dressing remains clean,dry,intact to bilateral lower legs. patient denies any acute events overnight. She denies any pain to her legs today. Patient denies any other pedal or lower extremity complaints. She denies n/f/v/c/d/cp. Objective - Vital Signs/Intake and Output Vital Signs (last 24 hours): Temp Pulse Resp BP Pulse Ox 97.9 F 80 20 153/90 H 98 11/13/16 05:13 11/13/16 05:13 11/13/16 05:13 11/13/16 05:13 11/13/16 05:13 Intake and Output: 11/13/16 11/13/16 06:59 18:59 Intake Total 1000 Balance 1000 - Medications Medications: Current Medications Digoxin (Lanoxin) 0.125 mg PO 1400 [facility] Last Admin: 11/12/16 14:34 Dose: 0.125 mg Diltiazem HCl (Cardizem Cd) 360 mg PO DAILY [facility] Last Admin: 11/12/16 09:49 Dose: 360 mg Furosemide (Lasix) 40 mg IVP DAILY [facility] Last Admin: 11/12/16 09:49 Dose: 40 mg Doxycycline Hyclate 100 mg/ (Sodium Chloride) 100 mls @ 100 mls/hr IVPB Q12 JANELL PRN Reason: Protocol Last Admin: 11/12/16 21:24 Dose: 100 mls/hr Insulin Human Regular (Humulin R Low) 0 units SC ACHS JANELL PRN Reason: Protocol Last Admin: 11/12/16 21:42 Dose: Not Given Mupirocin (Bactroban Ointment) 0 gm TOP BID [facility] Last Admin: 11/12/16 17:27 Dose: 1 u Valsartan (Diovan) 320 mg PO DAILY [facility] Last Admin: 11/12/16 09:49 Dose: 320 mg - Labs Labs: 11/11/16 06:15 11/12/16 07:00 PT 22.3 Seconds (9.9-11.8) H 11/12/16 07:00 INR 2.06 (0.93-1.08) H 11/12/16 07:00 APTT 30.7 Seconds (23.7-30.8) 11/11/16 06:15 - Constitutional Appears: Well, Non-toxic, No Acute Distress - Extremities Exam Additional comments: dressings to bilateral extremities remain c/d/i no calf tenderness or pain on palpation no strikethrough on dressing cft < 3 sec to all digits - Neurological Exam Neurological Exam: Alert, Awake, Oriented x3 - Psychiatric Exam Psychiatric exam: Normal Affect, Normal Mood Assessment and Plan - Assessment and Plan (Free Text) Assessment: 80 y/o female seen at bedside for bilateral vensous stasis dermatitis/ cellulitis of lower extremities, resolving Plan: patient evaluated and chart reviewed, seen at bedside with attending Dr. Ma labs and vitals reviewed, afebrile continue IV abx as per PMD continue to keep dressings clean,dry,intact instructed patient to remove ANNETTE bandages at nighttime and will be reapplied during the da will apply compression stockings once daughter brings them in continue to keep legs elevated podiatry will continue to monitor while patient remains in house <Windy Ma - Last Filed: 11/14/16 13:01> Objective - Vital Signs/Intake and Output Vital Signs (last 24 hours): Temp Pulse Resp BP Pulse Ox 97.3 F L 100 H 22 144/77 98 11/13/16 12:00 11/13/16 12:00 11/13/16 12:00 11/13/16 12:00 11/13/16 05:13 - Labs Labs: 11/11/16 06:15 11/13/16 10:45 PT 25.9 Seconds (9.9-11.8) H 11/13/16 07:30 INR 2.40 (0.93-1.08) H 11/13/16 07:30 APTT 30.7 Seconds (23.7-30.8) 11/11/16 06:15 Attending/Attestation - Attestation I have personally seen and examined this patient.: Yes I have fully participated in the care of the patient.: Yes I have reviewed all pertinent clinical information, including history, physical exam and plan: Yes
[2016-11-13 08:38] LABS: BLOOD UREA NITROGEN 19 mg/dL (7-21); CALCIUM 9.7 mg/dL (8.4-10.5); CARBON DIOXIDE 29 mmol/L (21-33); CHLORIDE 102 mmol/L (98-107); GFR AFRICAN-AMERICAN > 60; GLUCOSE,RANDOM 160 mg/dL (70-110); POTASSIUM 5.4 mmol/L (3.6-5.0); SODIUM 144 mmol/L (132-148)
--- NOTE | 2016-11-13 08:42 | CP.PCM.PN ---
Subjective - Date & Time of Evaluation Date of Evaluation: 11/13/16 Time of Evaluation: 08:00 - Subjective Subjective: Stable on 2R. No CP or SOB. V/S noted. AF PE: Lungs: clear Cor.: irreg. S1S2 Abd.: soft Ext.; chronic skin changes Neuro.: alert Labs 11/12 noted. INR = 2.06. Today's labs pending. BC x2 NG at 48 hrs. Echo noted: Nl LV. Mod. MR and mild TR. CXR 11/11 noted: improved infiltrate Objective - Vital Signs/Intake and Output Vital Signs (last 24 hours): Temp Pulse Resp BP Pulse Ox 97.9 F 80 20 153/90 H 98 11/13/16 05:13 11/13/16 05:13 11/13/16 05:13 11/13/16 05:13 11/13/16 05:13 Intake and Output: 11/13/16 11/13/16 06:59 18:59 Intake Total 1000 Balance 1000 - Medications Medications: Current Medications Digoxin (Lanoxin) 0.125 mg PO 1400 [facility] Last Admin: 11/12/16 14:34 Dose: 0.125 mg Diltiazem HCl (Cardizem Cd) 360 mg PO DAILY [facility] Last Admin: 11/12/16 09:49 Dose: 360 mg Furosemide (Lasix) 40 mg PO DAILY [facility] Doxycycline Hyclate 100 mg/ (Sodium Chloride) 100 mls @ 100 mls/hr IVPB Q12 [facility] PRN Reason: Protocol Last Admin: 11/12/16 21:24 Dose: 100 mls/hr Insulin Human Regular (Humulin R Low) 0 units SC ACHS [facility] PRN Reason: Protocol Last Admin: 11/13/16 08:20 Dose: 1 units Mupirocin (Bactroban Ointment) 0 gm TOP BID [facility] Last Admin: 11/12/16 17:27 Dose: 1 u Valsartan (Diovan) 320 mg PO DAILY [facility] Last Admin: 11/12/16 09:49 Dose: 320 mg Warfarin Sodium (Coumadin) 3 mg PO 1800 [facility] - Labs Labs: 11/11/16 06:15 11/12/16 07:00 PT 25.9 Seconds (9.9-11.8) H 11/13/16 07:30 INR 2.40 (0.93-1.08) H 11/13/16 07:30 APTT 30.7 Seconds (23.7-30.8) 11/11/16 06:15 Assessment and Plan - Assessment and Plan (Free Text) Plan: Assessment: Edema/HANSEN Pneumonia AF, on warfarin Chronic LE cellulitis Obesity HBP Diabetes UTI Plan: Await AM labs. IV > PO Lasix AB as per ID OOB/PT Warfarin by INR's Can D/C tel.
[2016-11-13] MEDS: diltiaZEM 180 mg/24 Hours CD Cap PO SCH (09:14)
[2016-11-13 13:04] VITALS: BP 144/77; PULSE 100; RESP 22; TEMP 97.3
--- NOTE | 2016-11-13 16:17 | CP.PCM.PN ---
Subjective - Date & Time of Evaluation Date of Evaluation: 11/13/16 Time of Evaluation: 10:55 - Subjective Subjective: Comfortable in bed, not in distress, no fevers, no SOB currently. Objective - Vital Signs/Intake and Output Vital Signs (last 24 hours): Temp Pulse Resp BP Pulse Ox 97.3 F L 100 H 22 144/77 98 11/13/16 12:00 11/13/16 12:00 11/13/16 12:00 11/13/16 12:00 11/13/16 05:13 Intake and Output: 11/13/16 11/13/16 06:59 18:59 Intake Total 1000 Balance 1000 - Labs Labs: 11/11/16 06:15 11/13/16 10:45 PT 25.9 Seconds (9.9-11.8) H 11/13/16 07:30 INR 2.40 (0.93-1.08) H 11/13/16 07:30 APTT 30.7 Seconds (23.7-30.8) 11/11/16 06:15 - Constitutional Appears: Non-toxic, No Acute Distress - Head Exam Head Exam: NORMAL INSPECTION - ENT Exam ENT Exam: Mucous Membranes Moist - Neck Exam Neck Exam: absent: Lymphadenopathy, Meningismus - Respiratory Exam Respiratory Exam: Decreased Breath Sounds - Cardiovascular Exam Cardiovascular Exam: +S1, +S2 - GI/Abdominal Exam GI & Abdominal Exam: Soft. absent: Tenderness Assessment and Plan - Assessment and Plan (Free Text) Plan: Assessment consider right lower lobe community-acquired pneumonia with atypical bacteria Consider venous stasis dermatitis of both lower extremities with mild cellulitis R/O acute congestive heart failure DM HTN morbid obesity with BMI 47 atrial fibrillation history of UTI S/P left knee arthroscopy Plan continue Doxycycline (day 3); blood cx negative, PCT is <0.05; should complete a 4-7 day course - discussed with Dr. Sanchez
--- NOTE | 2016-11-13 20:44 | DS ---
An 80-year-old female resting in bed this morning. She states she is feeling much better since the d ay prior and since her admission. Nursing staff relates that there were no particular problems durin g the night. Her temperature is 97.9, her pulse is 80, blood pressure is 153/80, oxygen sat is 98% o n room air, respiratory rate is 20. Microbiological studies, blood cultures are negative after 3 day s. LABORATORY DATA: Showed a PT to be 25.9 with an INR of 2.4. Chemistry showed sodium 144, potassium 5 which was repeat, chloride 102, BUN 19, creatinine 0.7. Random blood sugar was 160. The patient was seen this morning by cardiology who placed the patient on p.o. Lasix. She is being t reated for congestive heart failure. She was also seen by infectious disease and she is receiving an tibiotic therapy for community-acquired pneumonia. Her Rocephin had been discontinued by infectious disease and she was on doxycycline. It was recommended that the patient could be discharged home to continue doxycycline for another 4-7 days at 100 mg p.o. b.i.d. She would continue all of her home m edications consisting of Lasix 40 mg daily, digoxin 0.125 mg daily. She would be on Diovan 320 mg da shane, Coumadin 3 mg daily, Cardizem 360 mg daily and Bactroban treatment for her cellulitis of her low er extremities with wound care to be provided by the visiting nurse. She would be followed as an out patient. The chest x-ray showed clinical improvement and she was cleared by the individual consultan ts and these were individually discussed with the individual consultants as well as with the patient and the family. Bebe Sanchez MD cc: [id number] TT: 11/13/2016 20:42:37 rachel
--- NOTE | 2016-11-14 11:00 | PQF CHF ---
This form is a permanent part of the medical record Dr. Sanchez, As per discharge summary, pt was treated for CHF with Lasix. Please verify the severity and type of CHF. Thank you. Clarification of your documentation is requested to better reflect the severity of illness and intensity of treatment of your patient. Indicators present [x] Diagnosis of CHF and/or history of CHF [x] BNP > 200 [] Imaging Finding of Pulmonary Edema /Pleural Effusions [] Fluid/Volume Overload [] Pitting edema [] Ejection Fraction < 40% (Indicative of Systolic Heart Failure) [] Ejection Fraction > 40% (Indicative of Diastolic Heart Failure) [] Dyspnea / Orthopenea / Paroxysmal Nocturnal Dyspnea [] Other: Location in the medical record that reflects the above clinical findings: [] Treatment Provided: [] PHYSICIAN'S RESPONSE Based on your medical judgment of the clinical indicators outlined above, are you treating this patient for a known or suspected: [x] Acute CHF [] Systolic [] Diastolic [] Combined [] Chronic CHF [] Systolic [] Diastolic [] Combined [] Acute on Chronic CHF []Systolic [] Diastolic [] Combined [] CHF due hypertension [] Acute systolic []Chronic systolic [] Acute/ chronic systolic [] Other, please indicate: [] [x] If Unable to Determine, please check the box, sign and date. Present On Admission (POA) Indicator: [x] Present at the time of admission [] Not present at the time of admission [] Clinically Undetermined In responding to this query, please exercise your independent professional judgment. The fact that a question is asked does not imply that any particular answer is desired or expected. Thank you for your clarification on this documentation. If you have any questions please call:[ ] * Thank you, [ ]anila ANDERSONmanufacturing project engineer KALLI
== END 2016-11-13 14:39 | disposition home or self-care (01) | DRG 291 ==
LOC: ED 14:13 → ERH 17:09 → 2RSO 21:25
PROVIDERS: ADMIT Internal Medicine; ATTEND Internal Medicine
PROC: 3E0U33Z Introduction of Anti-inflammatory into Joints, Percutaneous Approach (ICD-10-PCS; principal; 2016-11-11)
PROC: 3E0U3BZ Introduction of Anesthetic Agent into Joints, Percutaneous Approach (ICD-10-PCS; 2016-11-11)
DX: I11.0 Hypertensive heart disease with heart failure (principal); J18.9 Pneumonia, unspecified organism; L03.115 Cellulitis of right lower limb; L03.116 Cellulitis of left lower limb; I50.9 Heart failure, unspecified; I08.1 Rheumatic disorders of both mitral and tricuspid valves; I48.2 Chronic atrial fibrillation; E11.9 Type 2 diabetes mellitus without complications; E66.9 Obesity, unspecified; M75.51 Bursitis of right shoulder; M19.011 Primary osteoarthritis, right shoulder; M17.12 Unilateral primary osteoarthritis, left knee; I87.2 Venous insufficiency (chronic) (peripheral); Z79.01 Long term (current) use of anticoagulants; Z68.31 Body mass index [BMI] 31.0-31.9, adult; Z79.84 Long term (current) use of oral hypoglycemic drugs; Z87.440 Personal history of urinary (tract) infections

== ENCOUNTER 2018-03-04 12:14 | Inpatient (IN) | payer MEDICARE ==
[2018-03-04 12:43] VITALS: BMI 44.8
--- NOTE | 2018-03-04 12:58 | ED PDOC ---
Arrival/HPI - General Chief Complaint: Fever Time Seen by Provider: 03/04/18 12:31 Historian: Patient - History of Present Illness Narrative History of Present Illness (Text): 03/04/18 12:56 82 year old female, whose past medical history includes Afib on Coumadin who presents to the ED sent by PMD for fever s/p UTI, +culture. Patient states she had a UA drawn 3d prior and had positive cultures today. She notes that she had fever today to 101 after which she took 2 325 tylenols and was sent to the ED after +culture results. She notes that she was sent in by PMD for Rx and admission. No known hx of CHF per pt, unk why she is only lasix. Patient denies any nausea, vomiting, chest pain, SOB, abdominal pain, back pain, neck pain, or any other complaints. PMD: Dr. Sanchez 03/04/18 15:06 Time/Duration: 24 hours Symptom Onset: Sudden Symptom Course: Unchanged Activities at Onset: Light Context: Home Past Medical History - Provider Review Nursing Documentation Reviewed: Yes - Travel History Have you recently traveled outside [place] w/in the past 3 mons?: No - Infectious Disease Hx of Infectious Diseases: None - Tetanus Immunization Tetanus Immunization: Unknown - Cardiac Hx Cardiac Disorders: Yes Hx Congestive Heart Failure: Yes Hx Hypertension: Yes - Pulmonary Hx Respiratory Disorders: No - Neurological Hx Neurological Disorder: No - HEENT Hx Deafness: Yes (bilat hearing aids) Hx Epistaxis: Yes (1 year ago) - Renal Hx Renal Disorder: No - Endocrine/Metabolic Hx Diabetes Mellitus Type 2: Yes - Hematological/Oncological Hx Blood Disorders: No - Integumentary Hx Dermatological Disorder: Yes Other/Comment: cellulitis both lower legs - Musculoskeletal/Rheumatological Hx Falls: No - Gastrointestinal Hx Gastrointestinal Disorders: No - Genitourinary/Gynecological Hx Genitourinary Disorders: Yes Hx Urinary Tract Infection: Yes Other/Comment: Endometrial Cancer - Psychiatric Hx Psychophysiologic Disorder: No Hx Substance Use: No - Surgical History Hx Orthopedic Surgery: Yes (left knee arthroscopy) Other/Comment: tonsillectomy childhood, x1 - Anesthesia Hx Anesthesia: Yes Hx Anesthesia Reactions: No Hx Malignant Hyperthermia: No - Suicidal Assessment Feels Threatened In Home Enviroment: No Family/Social History - Physician Review Nursing Documentation Reviewed: Yes Family/Social History: Unknown Family HX Smoking Status: Never Smoked Hx Alcohol Use: No Hx Substance Use: No Hx Substance Use Treatment: No Allergies/Home Meds Allergies/Adverse Reactions: Allergies No Known Allergies Allergy (Verified 03/04/18 12:53) Home Medications: Home Meds Medication Instructions Recorded Confirmed Digoxin 125 mcg PO DAILY 11/10/16 03/04/18 Furosemide [Lasix] 40 mg PO DAILY 11/10/16 03/04/18 [place]-3 Fatty Acids [Fish Oil] 1,200 mg PO BID 11/10/16 03/04/18 Warfarin [Coumadin] 3 mg PO DAILY 11/10/16 03/04/18 [id number] [Cardizem] 360 mg PO DAILY 11/10/16 03/04/18 Multivit-Min/FA/Lycopen/Lutein 1 each PO DAILY 03/04/18 03/04/18 [Centrum Silver Tablet] Olmesartan Medoxomil 40 mg PO DAILY 03/04/18 03/04/18 Review of Systems - Physician Review All systems were reviewed & negative as marked: Yes - Review of Systems Constitutional: Fevers Eyes: Normal ENT: Normal Respiratory: Normal. absent: SOB, Cough Cardiovascular: Normal. absent: Chest Pain Gastrointestinal: Normal. absent: Abdominal Pain, Diarrhea, Nausea, Vomiting Genitourinary Female: Normal. absent: Dysuria, Frequency Musculoskeletal: Normal. absent: Back Pain, Neck Pain Skin: Normal. absent: Rash Neurological: Normal. absent: Headache, Dizziness Endocrine: Normal Hemo/Lymphatic: Normal Psychiatric: Normal Physical Exam Vital Signs Reviewed: Yes Vital Signs Temp Pulse Resp BP Pulse Ox 03/04/18 12:42 98.4 F 88 19 118/71 91 L 03/04/18 12:41 98.8 F 89 22 135/64 94 L Temperature: Afebrile Blood Pressure: Normal Pulse: Regular Respiratory Rate: Normal Appearance: Positive for: Well-Appearing, Non-Toxic, Comfortable Pain Distress: None Mental Status: Positive for: Alert and Oriented X 3 - Systems Exam Head: Present: Atraumatic, Normocephalic Pupils: Present: PERRL Extroacular Muscles: Present: EOMI Conjunctiva: Present: Normal Mouth: Present: Moist Mucous Membranes Neck: Present: Normal Range of Motion Respiratory/Chest: Present: Clear to Auscultation, Good Air Exchange. No: Respiratory Distress, Accessory Muscle Use Cardiovascular: Present: Normal S1, S2, Other (Atrial fibrillation). No: Murmurs Abdomen: No: Tenderness, Distention, Peritoneal Signs Back: Present: Normal Inspection Upper Extremity: Present: Normal Inspection. No: Cyanosis, Edema Lower Extremity: Present: Normal Inspection. No: Edema Neurological: Present: GCS=15, CN II-XII Intact, Speech Normal Skin: Present: Warm, Dry, Normal Color. No: Rashes Psychiatric: Present: Alert, Oriented x 3, Normal Insight, Normal Concentration Medical Decision Making ED Course and Treatment: 03/04/18 13:00 Impression: 82 year old female presents to the ED sent by PMD fro fever s/p UTI diagnosis. Plan: -- VBG -- Labs -- CXR -- Cefepime -- Sodium Chloride -- UA -- Blood Culture -- Urine Culture Progress Notes: 03/04/18 13:[address] Sanchez. Wants pt admitted after consult. Suggests discussing case with Dr. Raygoza and Dr. Kirby. 03/04/18 14:05 CXR reviewed, shows: IMPRESSION: No activ pulmonary e disease. Moderate cardiomegaly. Per Dr. Kirby: we are to start cefepime 03/04/18 14:23 pt previous on Lasix. Does not know hx of CHF, will review previous medical records from Dr. Omer. EF is 45%. Lactate recorded at 1.0. No indication of sepsis. Afebrile here, wbc of 16k. Given hx of on lasix and EF 45% will give maintenance hydration for now. Consult sent to Dr. Omer and Dr. Raygoza. Spoke to Dr. Sanchez, who accepts pt admission to his service. 03/04/18 15:10 - Lab Interpretations Lab Results: 03/04/18 13:35 03/04/18 13:35 Lab Results 03/04/18 14:10: Urine Color Yellow, Urine Appearance Cloudy, Urine pH 6.0, Ur Specific Vega <= 1.005, Urine Protein 30 H, Urine Glucose (UA) Negative, Urine Ketones Negative, Urine Blood Moderate H, Urine Nitrate Negative, Urine Bilirubin Negative, Urine Urobilinogen 0.2, Ur Leukocyte Esterase Large H, Urine RBC 20 - 25, Urine WBC 25 - 30, Ur Epithelial Cells 4 - 5, Amorphous Sediment Few, Urine Bacteria Many, Urine Other Uyeast 03/04/18 13:35: pO2 48, VBG pH 7.41, VBG pCO2 43.0, VBG HCO3 27.3, VBG Total CO2 28.6 H, VBG O2 Sat (Calc) 86.5 H, VBG Base Excess 2.2 H, VBG Potassium 4.1, Sodium 129.0 L, Chloride 96.0 L, Glucose 211 H, Lactate 1.0, FiO2 21.0, Venous Blood Potassium 4.1 03/04/18 13:35: WBC 16.3 H D, RBC 3.90, Hgb 11.5 L, Hct 32.8 L, MCV 84.1 D, MCH 29.5, MCHC 35.1, RDW 13.9, Plt Count 222, MPV 9.3, Gran % 87.5 H, Lymph % ( Auto) 5.6 L, Haines % (Auto) 6.8 H, Eos % (Auto) 0.0 L, Baso % (Auto) 0.1, Gran # 14.23 H, Lymph # (Auto) 0.9 L, Haines # (Auto) 1.1 H, Eos # (Auto) 0.0, Baso # ( Auto) 0.01 03/04/18 13:35: Sodium 131 L, Chloride 96 L, Potassium 4.2, Carbon Dioxide 26, Anion Gap 13, BUN 24 H, Creatinine 1.0, Est GFR ( Amer) > 60, Est GFR ( Non-Af Amer) 53, Random Glucose 202 H, Calcium 8.6, Phosphorus 2.9, Magnesium 2.2, Total Bilirubin 0.8, AST 27, ALT 27, Alkaline Phosphatase 76, Total Protein 6.6, Albumin 3.5, Globulin 3.0, Albumin/Globulin Ratio 1.2 03/04/18 13:35: PT 17.5 H, INR 1.51, APTT 26.6 - RAD Interpretation Radiology Orders: 03/04/18 13:05 CHEST PORTABLE [RAD] Stat - Medication Orders Current Medication Orders: Sodium Chloride (Sodium Chloride 0.9%) 1,000 mls @ 100 mls/hr IV .Q10H STA Stop: 03/04/18 23:10 Discontinued Medications Cefepime HCl (Maxipime 2gm) 2 gm in 100 mls @ 100 mls/hr IVPB STAT STA PRN Reason: Protocol Stop: 03/04/18 14:03 Last Admin: 03/04/18 14:06 Dose: 100 mls/hr eMAR Start Stop Document 03/04/18 14:06 MR (Rec: 03/04/18 14:07 MR [id number]) Intravenous Solution Start Date 03/04/18 Start Time 14:06 End Date 03/04/18 End time 15:06 Total Infusion Time 60 Sodium Chloride (Sodium Chloride 0.9%) 1,000 mls @ 200 mls/hr IV .Q5H STA Stop: 03/04/18 18:06 Sodium Chloride (Sodium Chloride 0.9%) 1,000 mls @ 150 mls/hr IV .Q6H40M STA Stop: 03/04/18 19:46 Last Admin: 03/04/18 14:05 Dose: 150 mls/hr eMAR Start Stop Document 03/04/18 14:05 (Rec: 03/04/18 14:05 [id number]) Intravenous Solution Start Date 03/04/18 Start Time 14:05 - Scribe Statement The provider has reviewed the documentation as recorded by the Sundaribchoco Swenson All medical record entries made by the Sundaribchoco were at my direction and personally dictated by me. I have reviewed the chart and agree that the record accurately reflects my personal performance of the history, physical exam, medical decision making, and the department course for this patient. I have also personally directed, reviewed, and agree with the discharge instructions and disposition. Disposition/Present on Arrival - Present on Arrival Any Indicators Present on Arrival: No History of DVT/PE: No History of Uncontrolled Diabetes: No Urinary Catheter: No History of Decub. Ulcer: No History Surgical Site Infection Following: None - Disposition Have Diagnosis and Disposition been Completed?: Yes Diagnosis: UTI (urinary tract infection) Disposition: HOSPITALIZED Disposition Time: 12:40 Condition: GOOD
[2018-03-04] MEDS ORDERED: Cefepime IV 2 gm in NS 2 GM/100 ML BAG IVPB STA (13:04)
[2018-03-04] MEDS ORDERED: Sodium Chloride 0.9% 1,000 ML IV STA ×3 (13:07→14:30)
[2018-03-04 13:43] LABS: BASO # 0.01 K/mm3 (0.0-2.0); BASO % 0.1 % (0.0-3.0); GRAN # 14.23 (1.4-6.5); GRAN % 87.5 % (50.0-68.0); HEMOGLOBIN 11.5 g/dL (12.0-16.0); LYMPH # 0.9 (1.2-3.4); LYMPH % 5.6 % (22.0-35.0); MEAN CELL VOLUME 84.1 fl (80.0-105.0); MEAN CORPUSCULAR HEMOGLOBIN 29.5 pg (25.0-35.0); MEAN CORPUSCULAR HGB CONC 35.1 g/dl (31.0-37.0); MEAN PLATELET VOLUME 9.3 fl (7.0-11.0); MONO # 1.1 (0.1-0.6); MONO % 6.8 % (1.0-6.0); RBC 3.9 10^6/uL (3.5-6.1); RED CELL DISTRIBUTION WIDTH 13.9 % (11.5-14.5); WHITE BLOOD COUNT 16.3 10^3/ul (4.5-11.0)
[2018-03-04 13:45] LABS: VENOUS BLOOD GAS BASE EXCESS 2.2 mmol/L (0.0-2.0); VENOUS BLOOD GAS PO2 48 mm/Hg (30-55); VENOUS BLOOD PH 7.41 (7.32-7.43)
[2018-03-04 13:48] LABS: INR 1.51; PROTHROMBIN TIME 17.5 SECONDS (9.4-12.5)
[2018-03-04 13:50] LABS: PARTIAL THROMBOPLASTIN TIME 26.6 Seconds (25.1-36.5)
[2018-03-04 13:56] LABS: ALB/GLOB RATIO 1.2 (1.1-1.8); ALBUMIN 3.5 g/dL (3.0-4.8); ALT/SGPT 27 U/L (7-56); AST/SGOT 27 U/L (14-36); BLOOD UREA NITROGEN 24 mg/dL (7-21); CALCIUM 8.6 mg/dL (8.4-10.5); GFR AFRICAN-AMERICAN > 60; GFR NON-AFRICAN AMERICAN 53
--- NOTE | 2018-03-04 13:59 | RAD ---
Date of service: 03/04/2018 HISTORY: Sepsis COMPARISON: 04/14/2017. FINDINGS: LUNGS: The lungs are well inflated and clear. PLEURA: No significant pleural effusion identified, no pneumothorax apparent. CARDIOVASCULAR: There is moderate cardiomegaly. Atherosclerotic aortic arch calcifications are present. OSSEOUS STRUCTURES: No significant abnormalities. VISUALIZED UPPER ABDOMEN: Normal. OTHER FINDINGS: None. IMPRESSION: No activ pulmonary e disease. Moderate cardiomegaly.
[2018-03-04 14:17] LABS: URINE BILIRUBIN NEGATIVE (NEGATIVE); URINE BLOOD MODERATE (NEGATIVE); URINE GLUCOSE (UA) NEGATIVE (NEGATIVE); URINE LEUKOCYTE ESTERASE LARGE Leu/uL (NEGATIVE); URINE PROTEIN 30 mg/dL (<30 mg/dL); URINE UROBILINOGEN 0.2 E.U./dL (<1 E.U./dL)
[2018-03-04 14:18] LABS: URINE APPEARANCE CLOUDY (CLEAR); URINE COLOR YELLOW (YELLOW)
[2018-03-04 14:27] LABS: URINE AMORPHOUS SEDIMENT FEW; URINE BACTERIA MANY (NEG); URINE RBC 20 - 25 /hpf (0-2); URINE WBC 25 - 30 /hpf (0-6)
--- NOTE | 2018-03-04 14:54 | CP.PCM.CON ---
History of Present Illness - History of Present Illness History of Present Illness: 82 year old female with PMH of DM, HTN, morbid obesity with BMI 47, atrial fibrillation, history of UTI, S/P left knee arthroscopy came in to [facility] [place] of fever at home. She saw her PMD 3 days ago because of dysuria and urine cx were done, showing E. coli. She denies nausea or vomiting, no hematuria, no abdominal pain, no flank pain, no headache or dizziness, no chest pain, no SOB, no cough or rhinorrhea, no sore throat, no dysphagia, no pruritus, no rash. She states she was recently on Doxycycline, but not sure for what. Infectious Diseases consult is requested to further evaluate and manage. Review of Systems - Review of Systems All systems: reviewed and no additional remarkable complaints except (as per HPI ) Past Patient History - Infectious Disease Hx of Infectious Diseases: None - Tetanus Immunizations Tetanus Immunization: Unknown - Past Social History Smoking Status: Never Smoked - CARDIAC Hx Cardiac Disorders: Yes Hx Congestive Heart Failure: Yes Hx Hypertension: Yes - PULMONARY Hx Respiratory Disorders: No - NEUROLOGICAL Hx Neurological Disorder: No - HEENT Hx Deafness: Yes (bilat hearing aids) Hx Epistaxis: Yes (1 year ago) - RENAL Hx Chronic Kidney Disease: No - ENDOCRINE/METABOLIC Hx Diabetes Mellitus Type 2: Yes - HEMATOLOGICAL/ONCOLOGICAL Hx Blood Disorders: No - INTEGUMENTARY Hx Dermatological Problems: Yes Other/Comment: cellulitis both lower legs - MUSCULOSKELETAL/RHEUMATOLOGICAL Hx Falls: No - GASTROINTESTINAL Hx Gastrointestinal Disorders: No - GENITOURINARY/GYNECOLOGICAL Hx Genitourinary Disorders: Yes Hx Urinary Tract Infection: Yes Other/Comment: Endometrial Cancer - PSYCHIATRIC Hx Psychophysiologic Disorder: No Hx Substance Use: No - SURGICAL HISTORY Hx Orthopedic Surgery: Yes (left knee arthroscopy) Other/Comment: tonsillectomy childhood, x1 - ANESTHESIA Hx Anesthesia: Yes Hx Anesthesia Reactions: No Hx Malignant Hyperthermia: No Meds Allergies/Adverse Reactions: Allergies Allergy/AdvReac Type Severity Reaction Status Date / Time No Known Allergies Allergy Verified 03/04/18 12:53 - Medications Medications: Current Medications Sodium Chloride (Sodium Chloride 0.9%) 1,000 mls @ 100 mls/hr IV .Q10H STA Stop: 03/04/18 23:10 Physical Exam - Constitutional Appears: Chronically Ill - Head Exam Head Exam: NORMAL INSPECTION - Respiratory Exam Respiratory Exam: Decreased Breath Sounds - Cardiovascular Exam Cardiovascular Exam: +S1, +S2 - GI/Abdominal Exam GI & Abdominal Exam: Soft. absent: Tenderness Results - Vital Signs Recent Vital Signs: Last Vital Signs Temp 98.4 F 03/04/18 12:42 Pulse 88 03/04/18 12:42 Resp 19 03/04/18 12:42 BP 118/71 03/04/18 12:42 Pulse Ox 91 L 03/04/18 12:42 - Labs Result Diagrams: 03/04/18 13:35 03/04/18 13:35 Labs: Laboratory Results - last 24 hr 03/04/18 03/04/18 03/04/18 13:35 13:35 13:35 WBC 16.3 H D RBC 3.90 Hgb 11.5 L Hct 32.8 L MCV 84.1 D MCH 29.5 MCHC 35.1 RDW 13.9 Plt Count 222 MPV 9.3 Gran % 87.5 H Lymph % (Auto) 5.6 L [place] % (Auto) 6.8 H Eos % (Auto) 0.0 L Baso % (Auto) 0.1 Gran # 14.23 H Lymph # (Auto) 0.9 L [place] # (Auto) 1.1 H Eos # (Auto) 0.0 Baso # (Auto) 0.01 PT 17.5 H INR 1.51 APTT 26.6 pO2 VBG pH VBG pCO2 VBG HCO3 VBG Total CO2 VBG O2 Sat (Calc) VBG Base Excess VBG Potassium Sodium 131 L Chloride 96 L Glucose Lactate FiO2 Potassium 4.2 Carbon Dioxide 26 Anion Gap 13 BUN 24 H Creatinine 1.0 Est GFR ( Amer) > 60 Est GFR (Non-Af Amer) 53 Random Glucose 202 H Calcium 8.6 Phosphorus 2.9 Magnesium 2.2 Total Bilirubin 0.8 AST 27 ALT 27 Alkaline Phosphatase 76 Total Protein 6.6 Albumin 3.5 Globulin 3.0 Albumin/Globulin Ratio 1.2 Venous Blood Potassium Urine Color Urine Appearance Urine pH Ur Specific [place] Urine Protein Urine Glucose (UA) Urine Ketones Urine Blood Urine Nitrate Urine Bilirubin Urine Urobilinogen Ur Leukocyte Esterase Urine RBC Urine WBC Ur Epithelial Cells Amorphous Sediment Urine Bacteria Urine Other 03/04/18 03/04/18 13:35 14:10 WBC RBC Hgb Hct MCV MCH MCHC RDW Plt Count MPV Gran % Lymph % (Auto) [place] % (Auto) Eos % (Auto) Baso % (Auto) Gran # Lymph # (Auto) [place] # (Auto) Eos # (Auto) Baso # (Auto) PT INR APTT pO2 48 VBG pH 7.41 VBG pCO2 43.0 VBG HCO3 27.3 VBG Total CO2 28.6 H VBG O2 Sat (Calc) 86.5 H VBG Base Excess 2.2 H VBG Potassium 4.1 Sodium 129.0 L Chloride 96.0 L Glucose 211 H Lactate 1.0 FiO2 21.0 Potassium Carbon Dioxide Anion Gap BUN Creatinine Est GFR ( Amer) Est GFR (Non-Af Amer) Random Glucose Calcium Phosphorus Magnesium Total Bilirubin AST ALT Alkaline Phosphatase Total Protein Albumin Globulin Albumin/Globulin Ratio Venous Blood Potassium 4.1 Urine Color Yellow Urine Appearance Cloudy Urine pH 6.0 Ur Specific [place] <= 1.005 Urine Protein 30 H Urine Glucose (UA) Negative Urine Ketones Negative Urine Blood Moderate H Urine Nitrate Negative Urine Bilirubin Negative Urine Urobilinogen 0.2 Ur Leukocyte Esterase Large H Urine RBC 20 - 25 Urine WBC 25 - 30 Ur Epithelial Cells 4 - 5 Amorphous Sediment Few Urine Bacteria Many Urine Other Uyeast Assessment & Plan - Assessment and Plan (Free Text) Plan: Assessment consider sepsis due to urinary tract infection / pyelonephritis history of right lower lobe community-acquired pneumonia with atypical bacteria Consider venous stasis dermatitis of both lower extremities with mild cellulitis R/O acute congestive heart failure DM HTN morbid obesity with BMI 47 atrial fibrillation history of UTI S/P left knee arthroscopy Plan will start patient on Cefepime pending blood cx and repeat urine cx will trend fever curve and monitor clinically
--- NOTE | 2018-03-04 15:20 | CARD ---
APPROVED REPORT Date of service: 03/04/2018 EKG Measurement Heart [id number] <Conclusion> Atrial fibrillation with a competing junctional pacemaker Rightward axis Possible Anterior infarct, age undetermined Abnormal ECG
[2018-03-04] MEDS ORDERED: Insulin Reg-LOW-Coverage SC SCH ×3 (18:45)
[2018-03-04] MEDS ORDERED: Sodium Chloride 0.9% 1,000 ML IV SCH (19:15)
--- NOTE | 2018-03-05 03:19 | HP ---
Copied To: Bebe Sanchez MD Attending MD: Bebe Sanchez MD HISTORY OF PRESENT ILLNESS: This is an 82-year-old female referred to [facility] with a history of fever to 101 as per her daughter and history of dysuria. A most recent urinary culture shows evidence of an E. coli infection. The patient was referred to the emergency room because of the symptomatology and the fever history. PAST MEDICAL HISTORY: She has a past medical history of hypertension, congestive heart failure, mitral and tricuspid regurgitation, and ejection fraction of 45%, history of chronic edema of the lower extremities, history of cellulitis of the lower extremities, history of arthritis, chronic atrial fibrillation. She lives at home, ambulates, does not smoke, she does not drink alcohol. She denies any chills, nausea, vomiting, diarrhea or cough. ALLERGIES: THERE ARE NO KNOWN ALLERGIES. HOME MEDICATIONS: Consist of digoxin 125 mcg daily, Lasix 40 mg daily, Centrum Silver multivitamin daily, olmesartan 40 mg daily, fish oil capsule 1200 mg b.i.d., warfarin 3 mg daily, and diltiazem 360 mg daily. REVIEW OF SYSTEMS: Ten systems were reviewed, pertinent findings as stated above. PHYSICAL EXAMINATION VITAL SIGNS: Show a heart rate of 100, temp was 97.3, although the daughter states that they gave her Tylenol before coming to the emergency room, blood pressure 144/77, oxygen saturation reported 94% on room air. GENERAL: She is alert and oriented x3. LUNGS: Show diminished breath sounds at the bases. ABDOMEN: Obese, soft. Positive bowel sounds. EXTREMITIES: Show chronic edema. LABORATORY DATA: Chest x-ray is showing cardiomegaly with no active disease. Laboratory data shows a WBC of 16.3, RBC 3.9, hemoglobin 11.5, hematocrit 32.8, platelet count 222. PT is 17.5 with an INR of 1.51, and PTT of 26.6. Lactate was 1. Chemistry shows sodium of 131, potassium 4.2, chloride 96, CO2 of 26, BUN is 24, creatinine is 1, random blood sugar is 202, calcium is 8.6, phosphorus 2.9, magnesium 2.2, total bilirubin 0.8. AST, ALT and alkaline phosphatase are normal. Her albumin is 3.5. Urinalysis shows moderate blood, large leukocyte esterase, yeast, many bacteria, 25-30 wbc's. Digoxin level is 0.8. IMPRESSION: This is an 82-year-old female with urinary tract infection, fever, increased heart rate, dysuria. 1. Consider sepsis through urinary tract infection, pyelonephritis. 2. Venous stasis dermatitis of the lower extremities with mild cellulitis. 3. Diabetes mellitus?. 4. Hypertension. 5. Morbid obesity. 6. Atrial fibrillation with valvular heart disease and ejection fraction of 45%. Recently urinary tract infection, recently diagnosed to have endometrial cancer, history of arthritis. Home medications, as stated above. We will request: 1. Infectious Disease consult, panculture the patient. 2. Request Urology consult, for which the patient has been seen by Dr. Raygoza recently for her urinary tract problems and recent diagnosis of endometrial cancer. She has currently been evaluated by [facility]IC[facility] oncologist and is in the process of evaluation for treatment. 3. We will request her Cardiology consult, subtherapeutic INR, history of atrial fibrillation, history of CHF. 4. Hyperglycemia We will monitor the patient's blood sugars with coverage, place the patient on heart-healthy low carbohydrate diet.HgbA1c Further treatment plan pending input from the individual consultants. Clinical findings have discussed with emergency room and the patient and her daughter. Bebe Sanchez MD MTDElsa
[2018-03-05 06:22] LABS: BASO # 0.01 K/mm3 (0.0-2.0); BASO % 0.1 % (0.0-3.0); EOS % 0.1 % (1.5-5.0); GRAN # 11.92 (1.4-6.5); GRAN % 85.5 % (50.0-68.0); LYMPH # 1.1 (1.2-3.4); LYMPH % 7.7 % (22.0-35.0); MEAN CELL VOLUME 84.1 fl (80.0-105.0); MEAN CORPUSCULAR HEMOGLOBIN 28.7 pg (25.0-35.0); MEAN CORPUSCULAR HGB CONC 34.2 g/dl (31.0-37.0); MEAN PLATELET VOLUME 9.7 fl (7.0-11.0); MONO # 0.9 (0.1-0.6); MONO % 6.6 % (1.0-6.0); RBC 3.83 10^6/uL (3.5-6.1); RED CELL DISTRIBUTION WIDTH 14.1 % (11.5-14.5); WHITE BLOOD COUNT 13.9 10^3/ul (4.5-11.0)
[2018-03-05 06:23] LABS: INR 1.52; PROTHROMBIN TIME 17.6 SECONDS (9.4-12.5)
[2018-03-05 07:24] LABS: ALB/GLOB RATIO 1.1 (1.1-1.8); ALBUMIN 3.2 g/dL (3.0-4.8); ALT/SGPT 41 U/L (7-56); AST/SGOT 40 U/L (14-36); BLOOD UREA NITROGEN 22 mg/dL (7-21); CALCIUM 8.2 mg/dL (8.4-10.5); GFR AFRICAN-AMERICAN > 60; GFR NON-AFRICAN AMERICAN 60
--- NOTE | 2018-03-05 09:19 | PN ---
Copied To: Bebe Sanchez MD Attending MD: Bebe Sanchez MD DATE: 03/05/2018 SUBJECTIVE: The patient is resting in bed this morning. She states that she slept slightly during the night. Nursing staff relates no particular problems during the night. PHYSICAL EXAMINATION: VITAL SIGNS: She has a temp of 101, blood pressure is 141/62, her oxygen sat is 96% on room air. Her heart rate is 85. LUNGS: Show no wheezes. HEART: An irregular S1 and S2 rhythm. ABDOMEN: Obese, soft, positive bowel sounds. EXTREMITIES: Show chronic edema, stasis changes. NEUROLOGICAL: She is alert and oriented x3. LABORATORY DATA: Her PT is 17.6 with an INR of 1.52. CBC shows a WBC of 13.9, RBC 3.83, hemoglobin 11, hematocrit 32, platelet count is 217. Chemistry shows a sodium of 133, potassium 4.4, chloride 100. BUN is 22, the creatinine is 0.9. Random blood sugar is 153, calcium is 8.2. AST is 40. MEDICATIONS: Currently, the patient is on Cozaar 100 mg daily, digoxin 0.125 mg daily. Sodium chloride has been held. She is on Tylenol 2 tabs every 6 p.r.n. for temp. She received in the emergency room cefepime by Infectious Disease. ASSESSMENT AND PLAN: 1. She has a positive urine culture with Escherichia coli. Repeat culture and blood cultures are pending. She had fever yesterday and this morning. 2. Her sodium is improved. 3. A request has been made from Cardiology given her subtherapeutic INR, her history of atrial fibrillation, history of congestive heart failure. 4. Her blood sugar was elevated. The patient will be monitored for her blood sugar. Heart-healthy diet with low carbohydrates. Physical therapy request has been made. The patient has been encouraged to get out of bed. Urology consult has been requested as the patient has been seen by Urology in the outside for her urinary tract infection. Also, the patient was recently diagnosed with endometrial cancer and is currently being evaluated by Oncology for management and treatment. Radiation therapy has been planned. We will follow up the patient's labs. Continue current therapy at this time. Bebe Sanchez MD [facility] # [id number]
[2018-03-05] MEDS: diltiaZEM 180 mg/24 Hours CD Cap PO SCH (09:20)
[2018-03-05] MEDS: Cefepime IV 2 gm in NS 2 GM/100 ML BAG IVPB SCH ×2 (10:55→21:29)
--- NOTE | 2018-03-05 12:38 | CP.PCM.PN ---
Subjective - Date & Time of Evaluation Date of Evaluation: 03/05/18 Time of Evaluation: 09:55 - Subjective Subjective: Still had fever this morning but no chills, no nausea, no flank pain, dysuria is improved. Objective - Vital Signs/Intake and Output Vital Signs (last 24 hours): Temp Pulse Resp BP Pulse Ox 98.4 F 88 19 118/71 91 L 03/04/18 12:42 03/04/18 12:42 03/04/18 12:42 03/04/18 12:42 03/04/18 12:42 - Medications Medications: Current Medications Sodium Chloride (Sodium Chloride 0.9%) 1,000 mls @ 100 mls/hr IV .Q10H STA Stop: 03/04/18 23:10 - Labs Labs: 03/04/18 13:35 03/04/18 13:35 PT 17.5 SECONDS (9.4-12.5) H 03/04/18 13:35 INR 1.51 03/04/18 13:35 APTT 26.6 Seconds (25.1-36.5) 03/04/18 13:35 - Constitutional Appears: Non-toxic, Chronically Ill - Head Exam Head Exam: NORMAL INSPECTION - ENT Exam ENT Exam: Mucous Membranes Moist - Neck Exam Neck Exam: absent: Meningismus - Respiratory Exam Respiratory Exam: Decreased Breath Sounds - Cardiovascular Exam Cardiovascular Exam: +S1, +S2 - GI/Abdominal Exam GI & Abdominal Exam: Soft. absent: Tenderness Assessment and Plan - Assessment and Plan (Free Text) Plan: Assessment consider sepsis due to urinary tract infection / pyelonephritis with gram negative bacilli gram positive cocci in clusters in blood cx, R/O contamination history of right lower lobe community-acquired pneumonia with atypical bacteria Consider venous stasis dermatitis of both lower extremities with mild cellulitis R/O acute congestive heart failure DM HTN morbid obesity with BMI 47 atrial fibrillation history of UTI S/P left knee arthroscopy Plan continue Cefepime day 2 pending identification and sensitivities of the gram negative bacilli in the urine cx will repeat blood cx will continue to trend fever curve and monitor clinically
[2018-03-05] MEDS: Insulin Reg-LOW-Coverage SC SCH ×3 (12:46→22:30)
--- NOTE | 2018-03-05 12:55 | CON ---
Copied To: Anurag Jordan MD Attending MD: Anurag Jordan MD DATE: 03/05/2018 INDICATIONS: Fever, urinary tract infection, atrial fibrillation, etc. HISTORY OF PRESENT ILLNESS: This is an 82-year-old woman admitted by Dr. Sanchez with fever, E. coli urinary tract infection and chronic AFib, found to have a subtherapeutic INR. She has recently undergone a [facility] evaluation for endometrial cancer. There is no chest pain or shortness of breath. Today, she feels better. There is no orthopnea, PND, syncope, presyncope, lightheadedness, dizziness, vertigo, palpitations. There is chronic lower extremity edema. There is no rigor, sweats, cough, sputum, hemoptysis, abdominal pain, nausea, vomiting, diarrhea, constipation or melena. PAST MEDICAL HISTORY: Notable for atrial fibrillation, she is on warfarin. She has diabetes, moderate mitral regurgitation on an echocardiogram with a mildly reduced ejection fraction in 10/2016. She has a history of pneumonia, obesity, hypertension, chronic lower extremity edema with a history of cellulitis and arthritis. MEDICATIONS: At the time of admission include digoxin, Lasix, olmesartan, fish oil, multivitamins, warfarin, diltiazem. ALLERGIES: THERE WERE NO KNOWN MEDICATION ALLERGIES. SOCIAL HISTORY: She lives at home. She has not smoked cigarettes. She does not drink alcohol. She is ambulatory. FAMILY HISTORY: Noncontributory. REVIEW OF SYSTEMS: Ten-point review of systems is otherwise unremarkable except as noted above. PHYSICAL EXAMINATION GENERAL: She is a well-developed woman lying in bed on 3R, in no acute distress. VITAL SIGNS: She is in atrial fibrillation at 80 beats per minute. She is febrile to 101, respirations 20, O2 sat 96% on nasal cannula. HEENT: Reveals no neck vein distention, thyromegaly, carotid bruit. Mucous membranes moist. Conjunctivae pink. NECK: Supple. LUNGS: Lung rosario clear throughout. HEART: Reveals an irregular rhythm. Normal first and second heart sounds, soft systolic murmur along the left sternal border and at the apex. ABDOMEN: Benign. No mass, organomegaly, tenderness, rebound or guarding. No CVA tenderness. No palpable abdominal aortic aneurysm. EXTREMITIES: Reveals chronic lower extremity edema with chronic skin changes. NEUROLOGICAL: Awake, alert and oriented. PSYCHIATRIC: Normal as to mood and affect. SKIN: Warm and dry. LABORATORY AND IMAGING: EKG demonstrates atrial fibrillation, poor R-wave progression, nonspecific ST-wave changes, no change from the previous EKG. A chest x-ray reveals no active pulmonary disease, moderate cardiomegaly is noted. White count 13,900, hemoglobin of 11, hematocrit 32.2, platelet count is normal. PT 17.6, INR 1.52, PTT 26.6. A venous blood gas is noted. Electrolytes unremarkable, BUN 22, creatinine 0.9, blood sugar 225. LFTs are mildly abnormal. Magnesium 2.2. Urinalysis is abnormal. IMPRESSION: Allyssa Kessler is an 82-year-old woman admitted with fever, urinary tract infection, history of urinary tract infections and endometrial cancer recently diagnosed with chronic atrial fibrillation with subtherapeutic warfarin, moderate mitral regurgitation based on a prior echocardiogram, also a history of hypertension, obesity, lower extremity edema and cellulitis. PLAN: At this time, she is getting additional warfarin to maintain a therapeutic INR. She is undergoing treatment by Infectious Disease. She is getting antibiotics. She will have a urologic evaluation. We will continue Cardizem, monitor INR's and administer warfarin daily. We will continue Cozaar in replacement for olmesartan. She is getting digoxin. I will order an echocardiogram to update the degree of her mitral regurgitation and LV function currently. She can be out of bed to a chair. We will check stool for occult blood. Await culture results. I will follow along with you and make additional recommendations based on her clinical course. Anurag Jordan MD [facility]
[2018-03-05] MEDS: Digoxin 125 mcg (0.125 mg) Tab PO SCH (15:35)
[2018-03-06 07:17] LABS: BASO # 0.01 K/mm3 (0.0-2.0); BASO % 0.1 % (0.0-3.0); EOS # 0.1 (0.0-0.7); EOS % 0.4 % (1.5-5.0); GRAN # 8.82 (1.4-6.5); GRAN % 79.2 % (50.0-68.0); HEMOGLOBIN 10.9 g/dL (12.0-16.0); LYMPH # 1.3 (1.2-3.4); LYMPH % 11.9 % (22.0-35.0); MEAN CORPUSCULAR HEMOGLOBIN 28.7 pg (25.0-35.0); MEAN CORPUSCULAR HGB CONC 33.7 g/dl (31.0-37.0); MEAN PLATELET VOLUME 9.7 fl (7.0-11.0); MONO # 0.9 (0.1-0.6); MONO % 8.4 % (1.0-6.0); RBC 3.8 10^6/uL (3.5-6.1); RED CELL DISTRIBUTION WIDTH 14.4 % (11.5-14.5); WHITE BLOOD COUNT 11.1 10^3/ul (4.5-11.0)
[2018-03-06 07:21] LABS: INR 1.51; PROTHROMBIN TIME 17.5 SECONDS (9.4-12.5)
[2018-03-06] MEDS: Insulin Reg-LOW-Coverage SC SCH ×4 (07:21→23:56)
[2018-03-06 07:32] LABS: BLOOD UREA NITROGEN 22 mg/dL (7-21); CALCIUM 8.7 mg/dL (8.4-10.5); GFR AFRICAN-AMERICAN > 60; GFR NON-AFRICAN AMERICAN 60
--- NOTE | 2018-03-06 08:08 | CARD ---
APPROVED REPORT Date of service: 03/05/2018 EXAM: Two-dimensional and M-mode echocardiogram with Doppler and color Doppler. Other Information Quality : GoodRhythm : INDICATION FEVER, UTI, AF, MR 2D DIMENSIONS Left Atrium (2D)4.5 (1.6-4.0cm)IVSd1.0 (0.7-1.1cm) LVDd5.0 (3.9-5.9cm)PWd1.2 (0.7-1.1cm) LVDs3.3 (2.5-4.0cm)FS (%) 34.4 % LVEF (%)63.0 (>50%) M-Mode DIMENSIONS Aortic Root2.90 (2.2-3.7cm)Aortic Cusp Exc.1.60 (1.5-2.0cm) Aortic Valve AoV Peak Gbvqpeft579.0cm/s Mitral Valve MV [id number] ratio0.0MVA (PHT)2.65cm2 TDI E/Lateral E'0.0E/Medial E'0.0 Pulmonary Valve PV Peak Ysabozmb22.0cm/sPV Peak Grad.2mmHg Tricuspid Valve TR Peak [id number] [id number] Peak Gr.32mmHg [id number] LEFT VENTRICLE The left ventricle is normal size. There is normal left ventricular wall thickness. The left ventricular function is normal. The left ventricular ejection fraction is within the normal range. There is normal LV segmental wall motion. RIGHT VENTRICLE The right ventricle is normal size. ATRIA The left atrium is mildly dilated. The right atrium size is normal. The interatrial septum is intact with no evidence for an atrial septal defect. AORTIC VALVE The aortic valve is mildly calcified. MITRAL VALVE The mitral valve is normal in structure. Mitral regurgitation is moderate. TRICUSPID VALVE The tricuspid valve is normal in structure. There is mild to moderate tricuspid regurgitation. PULMONIC VALVE The pulmonic valve is not well visualized. There is mild pulmonic valvular regurgitation. GREAT VESSELS The aortic root is normal in size. PERICARDIAL EFFUSION There is no pericardial effusion. <Conclusion> The left ventricle is normal size. There is normal left ventricular wall thickness. The left ventricular function is normal. The aortic valve is mildly calcified. Aortic sclerosis. Mitral regurgitation is moderate. There is mild to moderate tricuspid regurgitation. There is mild pulmonic valvular regurgitation.
--- NOTE | 2018-03-06 08:17 | CP.PCM.PN ---
Subjective - Date & Time of Evaluation Date of Evaluation: 03/06/18 Time of Evaluation: 07:00 - Subjective Subjective: Stable on 3R. No chest pain or dyspnea. She feels better. V/S noted. AF PE: Lungs: clear Cor.: irreg. S1S2 Abd.: soft Ext.: no edema Neuro.: alert Labs noted: WBC = 11,100, INR = 1.51, K+= 4.4 Echo: see report. Urine C+S: + GNR. One BC +. Objective - Vital Signs/Intake and Output Vital Signs (last 24 hours): Temp Pulse Resp BP Pulse Ox 98.6 F 64 16 136/75 98 03/06/18 07:48 03/06/18 07:48 03/06/18 07:48 03/06/18 07:48 03/06/18 07:48 Intake and Output: 03/06/18 03/06/18 06:59 18:59 Intake Total 900 Balance 900 - Medications Medications: Current Medications Acetaminophen (Tylenol 325mg Tab) 650 mg PO Q6H PRN PRN Reason: Fever >100.4 F Last Admin: 03/05/18 06:09 Dose: 650 mg Digoxin (Digoxin) 0.125 mg PO 1400 [facility] Last Admin: 03/05/18 15:35 Dose: 0.125 mg Diltiazem HCl (Cardizem Cd) 360 mg PO DAILY [facility] Last Admin: 03/05/18 09:20 Dose: 360 mg Cefepime HCl (Maxipime 2gm) 2 gm in 100 mls @ 100 mls/hr IVPB Q12 JANELL PRN Reason: Protocol Stop: 03/10/18 09:31 Last Admin: 03/05/18 21:29 Dose: 100 mls/hr Insulin Human Regular (Humulin R Low) 0 units SC ACHS JANELL PRN Reason: Protocol Last Admin: 03/05/18 22:30 Dose: Not Given Losartan Potassium (Cozaar) 100 mg PO DAILY [facility] Last Admin: 03/05/18 09:20 Dose: 100 mg Warfarin Sodium (Coumadin) 10 mg PO ONCE ONE PRN Reason: Protocol Stop: 03/06/18 10:01 - Labs Labs: 03/06/18 06:30 03/06/18 06:30 PT 17.5 SECONDS (9.4-12.5) H 03/06/18 06:30 INR 1.51 03/06/18 06:30 APTT 26.6 Seconds (25.1-36.5) 03/04/18 13:35 Assessment and Plan - Assessment and Plan (Free Text) Assessment: Fever UTI Chronic AF, on warfarin with subtherapeutic INR MR, moderate. Pneumonia Obesity HBP Endometrial cancer Plan: As per ID, Uro., [place]/Onc. Warfarin 10 today. Monitor INRs OOB as sarah./PT
[2018-03-06] MEDS: diltiaZEM 180 mg/24 Hours CD Cap PO SCH (10:20)
[2018-03-06] MEDS: Cefepime IV 2 gm in NS 2 GM/100 ML BAG IVPB SCH ×2 (10:20→22:08)
--- NOTE | 2018-03-06 12:17 | PN ---
Copied To: Bebe Sanchez MD Attending MD: Bebe Sanchez MD DATE: 03/06/2018 SUBJECTIVE: An 82-year-old female. The patient is siting comfortably in the chair this morning. PHYSICAL EXAMINATION: VITAL SIGNS: T-max is 98.6, pulse is 64, blood pressure is 136/75, oxygen saturation is 98% on room air. HEART: Irregular S1, S2 rhythm. LUNGS: Clear. ABDOMEN: Obese, soft. Positive bowel sounds. EXTREMITIES: Show chronic edema. NEUROLOGICAL: Alert and oriented x3. LABORATORY DATA: Shows WBC of 11.1, RBC of 3.8, hemoglobin 10.9, hematocrit 32.3, platelet count is 219. PT is 17.5 with an INR of 1.51. Chemistry shows sodium 137, potassium 4.4, chloride 101, BUN 23, creatinine is 0.9, random blood sugar is 131, hemoglobin A1c is 6.6. ASSESSMENT: 1. Fever. 2. Urinary tract infection. 3. Positive blood culture. 4. The patient is currently on intravenous antibiotics by Infectious Disease, repeat blood culture is pending. 5. Subtherapeutic INR, work ticket distributor's note is reviewed and they have initiated a change in her Coumadin therapy. Followup lab. 6. Recently diagnosed endometrial cancer. 7. Hyperglycemia. 8. Hypertension. 9. Valvular heart disease. 10. The patient underwent an echocardiogram; conclusion is left ventricle is normal size, normal left ventricular wall thickness, left ventricular function is normal, aortic valve is mildly calcified with aortic sclerosis, mild mitral regurgitation, there is [id number] tricuspid regurg, [id number] pulmonic valvular regurgitation. PLAN: We will continue current level of care. Follow up the patient's lab work as per Cardiology, Infectious Disease and Urology. Bebe Sanchez MD
[2018-03-06] MEDS: Digoxin 125 mcg (0.125 mg) Tab PO SCH (14:14)
--- NOTE | 2018-03-06 15:15 | CP.PCM.PN ---
Subjective - Date & Time of Evaluation Date of Evaluation: 03/06/18 Time of Evaluation: 10:55 - Subjective Subjective: No fevers or chills, no nausea, no dysuria, no flank pain. Feeling better. Objective - Vital Signs/Intake and Output Vital Signs (last 24 hours): Temp Pulse Resp BP Pulse Ox 101 F H 85 20 141/62 96 03/05/18 08:05 03/05/18 09:20 03/05/18 08:05 03/05/18 09:20 03/05/18 08:05 Intake and Output: 03/05/18 03/05/18 06:59 18:59 Intake Total 1520 Balance 1520 - Medications Medications: Current Medications Acetaminophen (Tylenol 325mg Tab) 650 mg PO Q6H PRN PRN Reason: Fever >100.4 F Last Admin: 03/05/18 06:09 Dose: 650 mg Digoxin (Digoxin) 0.125 mg PO 1400 JANELL Diltiazem HCl (Cardizem Cd) 360 mg PO DAILY [facility] Last Admin: 03/05/18 09:20 Dose: 360 mg Cefepime HCl (Maxipime 2gm) 2 gm in 100 mls @ 100 mls/hr IVPB Q12 JANELL PRN Reason: Protocol Stop: 03/10/18 09:31 Last Admin: 03/05/18 10:55 Dose: 100 mls/hr Insulin Human Regular (Humulin R Low) 0 units SC ACHS JANELL PRN Reason: Protocol Losartan Potassium (Cozaar) 100 mg PO DAILY [facility] Last Admin: 03/05/18 09:20 Dose: 100 mg Warfarin Sodium (Coumadin) 5 mg PO 1800 ONE PRN Reason: Protocol Stop: 03/05/18 18:01 - Labs Labs: 03/05/18 05:30 03/05/18 05:30 PT 17.6 SECONDS (9.4-12.5) H 03/05/18 05:30 INR 1.52 03/05/18 05:30 APTT 26.6 Seconds (25.1-36.5) 03/04/18 13:35 - Constitutional Appears: Non-toxic, Chronically Ill - Head Exam Head Exam: NORMAL INSPECTION - ENT Exam ENT Exam: Mucous Membranes Moist - Neck Exam Neck Exam: absent: Meningismus - Respiratory Exam Respiratory Exam: Decreased Breath Sounds - Cardiovascular Exam Cardiovascular Exam: +S1, +S2 - GI/Abdominal Exam GI & Abdominal Exam: Soft. absent: Tenderness Assessment and Plan - Assessment and Plan (Free Text) Plan: Assessment consider sepsis due to urinary tract infection / pyelonephritis with gram negative bacilli gram positive cocci in clusters in blood cx, R/O contamination history of right lower lobe community-acquired pneumonia with atypical bacteria Consider venous stasis dermatitis of both lower extremities with mild cellulitis R/O acute congestive heart failure DM HTN morbid obesity with BMI 47 atrial fibrillation history of UTI S/P left knee arthroscopy Plan continue Cefepime day 3 pending identification and sensitivities of the gram negative bacilli in the urine cx will repeat blood cx will continue to trend fever curve and monitor clinically discussed with Dr. Sanchez
[2018-03-07 07:10] LABS: BASO # 0.02 K/mm3 (0.0-2.0); BASO % 0.2 % (0.0-3.0); EOS # 0.1 (0.0-0.7); EOS % 1.5 % (1.5-5.0); GRAN # 6.85 (1.4-6.5); GRAN % 75.1 % (50.0-68.0); HEMOGLOBIN 11.8 g/dL (12.0-16.0); LYMPH # 1.6 (1.2-3.4); MEAN CELL VOLUME 85.3 fl (80.0-105.0); MEAN PLATELET VOLUME 9.5 fl (7.0-11.0); MONO # 0.6 (0.1-0.6); MONO % 6.2 % (1.0-6.0); RBC 4.07 10^6/uL (3.5-6.1); RED CELL DISTRIBUTION WIDTH 14.4 % (11.5-14.5); WHITE BLOOD COUNT 9.1 10^3/ul (4.5-11.0)
[2018-03-07 07:13] LABS: INR 2.16; PROTHROMBIN TIME 25.2 SECONDS (9.4-12.5)
[2018-03-07 07:26] LABS: ALB/GLOB RATIO 1.1 (1.1-1.8); ALBUMIN 3.5 g/dL (3.0-4.8); ALT/SGPT 111 U/L (7-56); AST/SGOT 112 U/L (14-36); BLOOD UREA NITROGEN 22 mg/dL (7-21); CALCIUM 9.1 mg/dL (8.4-10.5); GFR AFRICAN-AMERICAN > 60; GFR NON-AFRICAN AMERICAN 60
--- NOTE | 2018-03-07 08:15 | CP.PCM.PN ---
Subjective - Date & Time of Evaluation Date of Evaluation: 03/07/18 Time of Evaluation: 07:00 - Subjective Subjective: Stable on 3R. No chest pain or dyspnea. She feels better. V/S noted. AF PE: Lungs: clear Cor.: irreg. S1S2 Abd.: soft Ext.: no edema Neuro.: alert I/O= 1740/840 Labs noted: INR = 2.14, increased LFTs Echo: see report. Urine C+S: + E. coli. One BC + GNR and Staph Objective - Vital Signs/Intake and Output Vital Signs (last 24 hours): Temp Pulse Resp BP Pulse Ox 97.7 F 75 20 144/73 95 03/07/18 07:47 03/07/18 07:47 03/07/18 07:47 03/07/18 07:47 03/07/18 07:47 Intake and Output: 03/07/18 03/07/18 06:59 18:59 Intake Total 1160 Output Total 420 Balance 740 - Medications Medications: Current Medications Acetaminophen (Tylenol 325mg Tab) 650 mg PO Q6H PRN PRN Reason: Fever >100.4 F Last Admin: 03/05/18 06:09 Dose: 650 mg Digoxin (Digoxin) 0.125 mg PO 1400 [facility] Last Admin: 03/06/18 14:14 Dose: 0.125 mg Diltiazem HCl (Cardizem Cd) 360 mg PO DAILY [facility] Last Admin: 03/06/18 10:20 Dose: 360 mg Cefepime HCl (Maxipime 2gm) 2 gm in 100 mls @ 100 mls/hr IVPB Q12 JANELL PRN Reason: Protocol Stop: 03/10/18 09:31 Last Admin: 03/06/18 22:08 Dose: 100 mls/hr Insulin Human Regular (Humulin R Low) 0 units SC ACHS JANELL PRN Reason: Protocol Last Admin: 03/06/18 23:56 Dose: Not Given Losartan Potassium (Cozaar) 100 mg PO DAILY [facility] Last Admin: 03/06/18 10:20 Dose: 100 mg Warfarin Sodium (Coumadin) 3 mg PO 1800 JANELL PRN Reason: Protocol - Labs Labs: 03/07/18 06:30 03/07/18 06:30 PT 25.2 SECONDS (9.4-12.5) H 03/07/18 06:30 INR 2.16 03/07/18 06:30 APTT 26.6 Seconds (25.1-36.5) 03/04/18 13:35 Assessment and Plan - Assessment and Plan (Free Text) Assessment: Fever UTI Chronic AF, on warfarin with subtherapeutic INR initially MR, moderate. 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 Warfarin 3 today. Monitor INRs OOB as sarah./PT
[2018-03-07] MEDS: diltiaZEM 180 mg/24 Hours CD Cap PO SCH (09:00)
[2018-03-07] MEDS: Cefepime IV 2 gm in NS 2 GM/100 ML BAG IVPB SCH ×2 (09:01→21:46)
[2018-03-07] MEDS: Insulin Reg-LOW-Coverage SC SCH ×4 (09:01→22:07)
--- NOTE | 2018-03-07 09:44 | PN ---
Copied To: Bebe Sanchez MD Attending MD: Bebe Sanchez MD DATE: 03/07/2018 SUBJECTIVE: An 82-year-old female who was sitting comfortably this morning in the chair. Nursing relates no particular problems during the night. PHYSICAL EXAMINATION: VITAL SIGNS: Temp is 97.7, pulse is 75, blood pressure is 144/73, oxygen sat is 95% on room air. GENERAL: She is alert and oriented x3. LUNGS: Clear. HEART: An irregular S1 and S2 rhythm. ABDOMEN: Obese, soft, positive bowel sounds. EXTREMITIES: Show chronic edema. LABORATORY DATA: Sodium 140, potassium 4.8, chloride 102, the BUN is 22, the creatinine is 0.9, blood sugar is 140, calcium 9.1, her AST is 112, her ALT is 111, the alkaline phosphatase is normal at 101. ASSESSMENT AND PLAN: The patient is receiving IV cefepime for urinary tract infection with Escherichia coli. Blood cultures today, repeat blood cultures are negative. She has underlying chronic atrial fibrillation, on Cardizem and Coumadin, digoxin. She is being followed by her producer arborist manager who is adjusting her dosage of Coumadin. Her INR this morning is 2.16. She has got a history of hypertension. She is also on Cozaar. She is on a fingerstick blood sugar monitoring. Her hemoglobin A1c is 6.1 and she is on Tylenol p.r.n. for fever. 1. We will review current management with infectious disease. 2. Follow up chemistries and LFTs and CBC. 3. Anticoagulation therapy as per Cardiology. 4. The patient has underlying endometrial cancer, has been seen by Gynecology Oncology with plans for treatment. Bebe Sanchez MD
[2018-03-07] MEDS: Digoxin 125 mcg (0.125 mg) Tab PO SCH (15:00)
--- NOTE | 2018-03-07 17:19 | CP.PCM.PN ---
Subjective - Date & Time of Evaluation Date of Evaluation: 03/07/18 Time of Evaluation: 11:20 - Subjective Subjective: No fevers, comfortable on a chair, no diarrhea or nausea. Objective - Vital Signs/Intake and Output Vital Signs (last 24 hours): Temp Pulse Resp BP Pulse Ox 98.6 F 64 16 136/75 98 03/06/18 07:48 03/06/18 10:20 03/06/18 07:48 03/06/18 10:20 03/06/18 07:48 Intake and Output: 03/06/18 03/06/18 06:59 18:59 Intake Total 900 580 Output Total 420 Balance 900 160 - Medications Medications: Current Medications Acetaminophen (Tylenol 325mg Tab) 650 mg PO Q6H PRN PRN Reason: Fever >100.4 F Last Admin: 03/05/18 06:09 Dose: 650 mg Digoxin (Digoxin) 0.125 mg PO 1400 [facility] Last Admin: 03/06/18 14:14 Dose: 0.125 mg Diltiazem HCl (Cardizem Cd) 360 mg PO DAILY [facility] Last Admin: 03/06/18 10:20 Dose: 360 mg Cefepime HCl (Maxipime 2gm) 2 gm in 100 mls @ 100 mls/hr IVPB Q12 JANELL PRN Reason: Protocol Stop: 03/10/18 09:31 Last Admin: 03/06/18 10:20 Dose: 100 mls/hr Insulin Human Regular (Humulin R Low) 0 units SC ACHS JANELL PRN Reason: Protocol Last Admin: 03/06/18 14:18 Dose: 1 units Losartan Potassium (Cozaar) 100 mg PO DAILY [facility] Last Admin: 03/06/18 10:20 Dose: 100 mg Warfarin Sodium (Coumadin) 10 mg PO 1800 ONE PRN Reason: Protocol Stop: 03/06/18 18:01 - Labs Labs: 03/06/18 06:30 03/06/18 06:30 PT 17.5 SECONDS (9.4-12.5) H 03/06/18 06:30 INR 1.51 03/06/18 06:30 APTT 26.6 Seconds (25.1-36.5) 03/04/18 13:35 - Constitutional Appears: Non-toxic, Chronically Ill - Head Exam Head Exam: NORMAL INSPECTION - ENT Exam ENT Exam: Mucous Membranes Moist - Neck Exam Neck Exam: absent: Meningismus - Respiratory Exam Respiratory Exam: Decreased Breath Sounds - Cardiovascular Exam Cardiovascular Exam: +S1, +S2 - GI/Abdominal Exam GI & Abdominal Exam: Soft. absent: Tenderness Assessment and Plan - Assessment and Plan (Free Text) Plan: Assessment consider sepsis due to urinary tract infection / pyelonephritis with E. coli, associated with bacteremia gram positive cocci in clusters in blood cx, R/O contamination history of right lower lobe community-acquired pneumonia with atypical bacteria Consider venous stasis dermatitis of both lower extremities with mild cellulitis R/O acute congestive heart failure DM HTN morbid obesity with BMI 47 atrial fibrillation history of UTI S/P left knee arthroscopy Plan continue Cefepime day 4 - patient has been afebrile for more than 24 hours - may be able to switch to PO antibiotics tomorrow as discussed with Dr. Sanchez - will need total 10-14 days of antibiotics repeat blood cx are negative will continue to trend fever curve and monitor clinically
[2018-03-08 07:23] LABS: BASO # 0.04 K/mm3 (0.0-2.0); BASO % 0.4 % (0.0-3.0); EOS # 0.1 (0.0-0.7); EOS % 1.1 % (1.5-5.0); GRAN # 7.13 (1.4-6.5); GRAN % 76.2 % (50.0-68.0); HEMOGLOBIN 10.9 g/dL (12.0-16.0); LYMPH # 1.5 (1.2-3.4); LYMPH % 15.9 % (22.0-35.0); MEAN CELL VOLUME 85.7 fl (80.0-105.0); MEAN CORPUSCULAR HEMOGLOBIN 28.4 pg (25.0-35.0); MEAN CORPUSCULAR HGB CONC 33.1 g/dl (31.0-37.0); MEAN PLATELET VOLUME 9.8 fl (7.0-11.0); MONO # 0.6 (0.1-0.6); MONO % 6.4 % (1.0-6.0); RBC 3.84 10^6/uL (3.5-6.1); RED CELL DISTRIBUTION WIDTH 14.5 % (11.5-14.5); WHITE BLOOD COUNT 9.4 10^3/ul (4.5-11.0)
[2018-03-08 07:36] LABS: ALB/GLOB RATIO 1.1 (1.1-1.8); ALBUMIN 3.5 g/dL (3.0-4.8); ALT/SGPT 116 U/L (7-56); AST/SGOT 76 U/L (14-36); BLOOD UREA NITROGEN 20 mg/dL (7-21); CALCIUM 9.1 mg/dL (8.4-10.5); GFR AFRICAN-AMERICAN > 60; GFR NON-AFRICAN AMERICAN > 60
[2018-03-08 07:45] LABS: INR 4.1; PROTHROMBIN TIME 48.5 SECONDS (9.4-12.5)
[2018-03-08] MEDS: Insulin Reg-LOW-Coverage SC SCH ×4 (08:12→22:17)
[2018-03-08] MEDS: diltiaZEM 180 mg/24 Hours CD Cap PO SCH (09:07)
[2018-03-08] MEDS: Cefepime IV 2 gm in NS 2 GM/100 ML BAG IVPB SCH ×2 (09:08→22:08)
--- NOTE | 2018-03-08 10:50 | CP.PCM.CON ---
History of Present Illness - History of Present Illness History of Present Illness: Seen and examined at the bedside this morning, chart reviewed. Request for GI consult this for enzymes. HPI: This is a 82-year-old female with a past medical history of Artrial Fibrillation on Coumadin, hypertension, CHF came to the [facility] for reports of fever of 101 as p daughter and history of d on oral antibiotics for UTI prior to admission. The patient had urine cultures which showed E. coli infection. Patient labs showing elevation in AST and ALT. Denies h/o of infectious hepatitits, does have gallstones, abdominal US from 09/2017 reviewed, CBD 5mm and show fatty liver. Patient denies new medication except for recent oral antibiotics, No N/V , abdominal pain, wt. loss, change in BH or GI bleeding. No c/o SOB or chest pain. Spoke to Dr. Sanchez and as per patient daughter, the patient has underlying Endometrial cancer and to start radiation treatments. Denies ever having EGD or colonoscopy ad expressed she does not want one. No reports of fever, chill, hematuria. PMH: atrial fibrillation on COumadin, HTN, CHF, Chronic edema to LE, H/O cellulitis of LE, arthritis, and recent Endometrial cancer to start radiation. PSH: x1, tonsilectomy,tubal ligation, knee surgery, no cardiac procedures Family HX: sister: breast cancer/2 eldest daughter: breast cancer: father: ? 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%, Afib) Hx Congestive Heart Failure: Yes Hx Hypertension: Yes - PULMONARY Hx Respiratory Disorders: Yes Hx Pneumonia: Yes - NEUROLOGICAL Hx Neurological Disorder: Yes - HEENT Hx Deafness: Yes (bilat hearing aids) Hx Epistaxis: Yes (1 year ago) - RENAL Hx Chronic Kidney Disease: No - ENDOCRINE/METABOLIC Hx Diabetes Mellitus Type 2: Yes - HEMATOLOGICAL/ONCOLOGICAL Hx Blood Disorders: No Hx Cancer: Yes (uterine cA) - INTEGUMENTARY Hx Dermatological Problems: Yes Other/Comment: cellulitis both lower legs - MUSCULOSKELETAL/RHEUMATOLOGICAL Hx Arthritis: Yes - GASTROINTESTINAL Hx Gastrointestinal Disorders: No - GENITOURINARY/GYNECOLOGICAL Hx Genitourinary Disorders: Yes Hx Urinary Tract Infection: Yes Other/Comment: Endometrial Cancer - PSYCHIATRIC Hx Psychophysiologic Disorder: No - SURGICAL HISTORY Hx Surgeries: Yes Hx Orthopedic Surgery: Yes (left knee arthroscopy) Other/Comment: tonsillectomy childhood, x1 - ANESTHESIA Hx Anesthesia: Yes Hx Anesthesia Reactions: No Hx Malignant Hyperthermia: No Meds Allergies/Adverse Reactions: Allergies Allergy/AdvReac Type Severity Reaction Status Date / Time No Known Allergies Allergy Verified 03/04/18 17:08 - Medications Medications: Current Medications Acetaminophen (Tylenol 325mg Tab) 650 mg PO Q6H PRN PRN Reason: Fever >100.4 F Last Admin: 03/05/18 06:09 Dose: 650 mg Digoxin (Digoxin) 0.125 mg PO 1400 [facility] Last Admin: 03/07/18 15:00 Dose: 0.125 mg Diltiazem HCl (Cardizem Cd) 360 mg PO DAILY [facility] Last Admin: 03/08/18 09:07 Dose: 360 mg Cefepime HCl (Maxipime 2gm) 2 gm in 100 mls @ 100 mls/hr IVPB Q12 JANELL PRN Reason: Protocol Stop: 03/10/18 09:31 Last Admin: 03/08/18 09:08 Dose: 100 mls/hr Insulin Human Regular (Humulin R Low) 0 units SC ACHS JANELL PRN Reason: Protocol Last Admin: 03/08/18 08:12 Dose: Not Given Losartan Potassium (Cozaar) 100 mg PO DAILY [facility] Last Admin: 03/07/18 09:00 Dose: 100 mg Physical Exam - Constitutional Appears: No Acute Distress - Head Exam Head Exam: NORMOCEPHALIC - Eye Exam Eye Exam: Normal appearance. absent: Scleral icterus - ENT Exam ENT Exam: Mucous Membranes Moist - Neck Exam Neck exam: Positive for: Normal Inspection - Respiratory Exam Respiratory Exam: NORMAL BREATHING PATTERN. absent: Respiratory Distress - Cardiovascular Exam Cardiovascular Exam: +S1, +S2 - GI/Abdominal Exam GI & Abdominal Exam: Normal Bowel Sounds, Soft. absent: Guarding, Rebound, Tenderness - Extremities Exam Extremities exam: Positive for: pedal pulses present. Negative for: calf tenderness Additional comments: chronic edema, no erythema - Neurological Exam Neurological exam: Alert, Oriented x3 - Skin Skin Exam: Dry, Warm Results - Vital Signs Recent Vital Signs: Last Vital Signs Temp 98.4 F 03/08/18 07:50 Pulse 62 03/08/18 09:07 Resp 20 03/08/18 07:50 BP 144/75 03/08/18 09:07 Pulse Ox 96 03/08/18 07:50 - Labs Result Diagrams: 03/08/18 06:30 03/08/18 06:30 Labs: Laboratory Results - last 24 hr 03/08/18 03/08/18 03/08/18 06:30 06:30 06:30 WBC 9.4 RBC 3.84 Hgb 10.9 L Hct 32.9 L MCV 85.7 MCH 28.4 MCHC 33.1 RDW 14.5 Plt Count 289 MPV 9.8 Gran % 76.2 H Lymph % (Auto) 15.9 L [place] % (Auto) 6.4 H Eos % (Auto) 1.1 L Baso % (Auto) 0.4 Gran # 7.13 H Lymph # (Auto) 1.5 [place] # (Auto) 0.6 Eos # (Auto) 0.1 Baso # (Auto) 0.04 PT 48.5 H INR 4.10 H* Sodium 142 Potassium 4.7 Chloride 103 Carbon Dioxide 29 Anion Gap 15 BUN 20 Creatinine 0.8 Est GFR ( Amer) > 60 Est GFR (Non-Af Amer) > 60 Random Glucose 138 H Calcium 9.1 Total Bilirubin 0.3 AST 76 H D ALT 116 H Alkaline Phosphatase 104 Total Protein 6.8 Albumin 3.5 Globulin 3.3 Albumin/Globulin Ratio 1.1 Assessment & Plan - Assessment and Plan (Free Text) Assessment: ASSESSMENT: Sepsis UTI, (+) E coli Elevated liver enzymes, may be multifactoral in the setting of sepsis and could consider medication induced, other to consider is hepatic congestion, does have h/o gallstones but total bilirubin and alkaline phosphatase are within normal limits, less likely. Atrial fibrillation Venous stasis dermatitis of LE Morbid Obesity Endometial cancer PLAN: trend LFT, does show improvement today obtain hepatitis panel reviewed abdominal US 09/2107, (+) gallstones, fatty liver, CBD 5mm, no dilation continue diet as tolerated on Maxipime as per ID Coumadin currently on hold avoid hepatotoxic medication when at all possible Plan discussed w/ Dr. Sanchez. Thank you for this consult and for allowing us to participate in your patient care, further recommendation based on clinical course. Case discussed w/ Dr. Durán covering Dr. Denton.
[2018-03-08] MEDS: Digoxin 125 mcg (0.125 mg) Tab PO SCH (14:58)
[2018-03-08 17:12] LABS: HEPATITIS B SURFACE AG Negative (NEGATIVE)
[2018-03-08 17:18] LABS: HEPATITIS A IGM NEGATIVE (NEGATIVE); HEPATITIS B CORE AB NEGATIVE (NEGATIVE)
[2018-03-08 17:29] LABS: HEPATITIS C ANTIBODY NEGATIVE (NEGATIVE)
--- NOTE | 2018-03-08 19:28 | PN ---
Copied To: Bebe Sanchez MD Attending MD: Bebe Sanchez MD DATE: 03/08/2018 SUBJECTIVE: An 82-year-old female, resting comfortably this morning, sitting in a chair. Nursing staff reports that there were no incidents or problems during the night. The patient states that she is feeling better. PHYSICAL EXAMINATION VITAL SIGNS: Temperature is reported orally at 98.4, pulse is 62, blood pressure 144/75, oxygen sat on 2 liters nasal cannula 96%. LUNGS: Clear. HEART: Is in S1 and S2. Grade 3/6 systolic murmur at the left cardiac border, irregular rhythm. ABDOMEN: Obese, soft, positive bowel sounds. EXTREMITIES: Show chronic edema. NEUROLOGICAL: Alert and oriented x3. ASSESSMENT AND PLAN: 1. Repeat blood cultures are negative at three days. Currently, the patient is on Maxipime IV by Infectious Disease and await input from Infectious Disease regarding further infectious antibiotic treatment. 2. The patient is being followed by Cardiology. She has underlying atrial fibrillation. Her INR this morning was 4.1. Her Coumadin will be placed on hold with repeat in the morning. Her chemistries are within normal limits. Her BUN is 20, her creatinine is 0.8. Her random blood sugar is 138. AST is 76, ALT is 116. CBC shows WBC of 9.4, RBC 3.84, hemoglobin 10.9, hematocrit 32.9, platelet count 289. GI has seen the patient because of the abnormal liver function test. Repeat studies have been requested as well as hepatitis panel. 3. The patient has recently been diagnosed with endometrial cancer and pending clearance by individual consultants will be returning to a INSTRUCTIONAL TECHNOLOGY SPECIALIST oncologist for treatment. All clinical findings date has been discussed with the patient and the family and the individual consultants. Continue current level of care. Bebe Sanchez MD
--- NOTE | 2018-03-08 20:14 | CP.PCM.PN ---
Subjective - Date & Time of Evaluation Date of Evaluation: 03/08/18 Time of Evaluation: 11:40 - Subjective Subjective: No fevers, has more energy, feeling better, no nausea, no diarrhea. Objective - Vital Signs/Intake and Output Vital Signs (last 24 hours): Temp Pulse Resp BP Pulse Ox 97.9 F 72 20 129/67 93 L 03/07/18 16:24 03/07/18 16:24 03/07/18 16:24 03/07/18 16:24 03/07/18 16:24 Intake and Output: 03/07/18 03/07/18 06:59 18:59 Intake Total 1160 Output Total 420 Balance 740 - Medications Medications: Current Medications Acetaminophen (Tylenol 325mg Tab) 650 mg PO Q6H PRN PRN Reason: Fever >100.4 F Last Admin: 03/05/18 06:09 Dose: 650 mg Digoxin (Digoxin) 0.125 mg PO 1400 [facility] Last Admin: 03/07/18 15:00 Dose: 0.125 mg Diltiazem HCl (Cardizem Cd) 360 mg PO DAILY [facility] Last Admin: 03/07/18 09:00 Dose: 360 mg Cefepime HCl (Maxipime 2gm) 2 gm in 100 mls @ 100 mls/hr IVPB Q12 JANELL PRN Reason: Protocol Stop: 03/10/18 09:31 Last Admin: 03/07/18 09:01 Dose: 100 mls/hr Insulin Human Regular (Humulin R Low) 0 units SC ACHS [facility] PRN Reason: Protocol Last Admin: 03/07/18 12:00 Dose: 1 units Losartan Potassium (Cozaar) 100 mg PO DAILY [facility] Last Admin: 03/07/18 09:00 Dose: 100 mg Warfarin Sodium (Coumadin) 3 mg PO 1800 [facility] PRN Reason: Protocol - Labs Labs: 03/07/18 06:30 03/07/18 06:30 PT 25.2 SECONDS (9.4-12.5) H 03/07/18 06:30 INR 2.16 03/07/18 06:30 APTT 26.6 Seconds (25.1-36.5) 03/04/18 13:35 - Constitutional Appears: Non-toxic, Chronically Ill - Head Exam Head Exam: NORMAL INSPECTION - ENT Exam ENT Exam: Mucous Membranes Moist - Neck Exam Neck Exam: absent: Meningismus - Respiratory Exam Respiratory Exam: Decreased Breath Sounds - Cardiovascular Exam Cardiovascular Exam: +S1, +S2 - GI/Abdominal Exam GI & Abdominal Exam: Soft. absent: Tenderness Assessment and Plan - Assessment and Plan (Free Text) Plan: Assessment sepsis due to urinary tract infection / pyelonephritis with E. coli, associated with bacteremia, clinically improving gram positive cocci in clusters in blood cx, R/O contamination history of right lower lobe community-acquired pneumonia with atypical bacteria Consider venous stasis dermatitis of both lower extremities with mild cellulitis R/O acute congestive heart failure DM HTN morbid obesity with BMI 47 atrial fibrillation history of UTI S/P left knee arthroscopy Plan on Cefepime day 5 - patient has been afebrile for more than 24 hours - may be able to switch to PO antibiotics tomorrow as discussed with Dr. Sanchez - will need total 10-14 days of antibiotics repeat blood cx are negative
[2018-03-09 07:26] LABS: BASO # 0.03 K/mm3 (0.0-2.0); BASO % 0.3 % (0.0-3.0); EOS # 0.2 (0.0-0.7); EOS % 1.6 % (1.5-5.0); GRAN # 7.19 (1.4-6.5); GRAN % 74.1 % (50.0-68.0); HEMOGLOBIN 11.1 g/dL (12.0-16.0); LYMPH # 1.8 (1.2-3.4); LYMPH % 18.4 % (22.0-35.0); MEAN CELL VOLUME 84.7 fl (80.0-105.0); MEAN CORPUSCULAR HEMOGLOBIN 28.8 pg (25.0-35.0); MEAN CORPUSCULAR HGB CONC 33.9 g/dl (31.0-37.0); MEAN PLATELET VOLUME 9.4 fl (7.0-11.0); MONO # 0.5 (0.1-0.6); MONO % 5.6 % (1.0-6.0); RBC 3.86 10^6/uL (3.5-6.1); RED CELL DISTRIBUTION WIDTH 14.3 % (11.5-14.5); WHITE BLOOD COUNT 9.7 10^3/ul (4.5-11.0)
[2018-03-09 07:31] LABS: PROTHROMBIN TIME 42.7 SECONDS (9.4-12.5)
[2018-03-09 07:32] LABS: INR 3.62
[2018-03-09 07:34] LABS: ALBUMIN 3.5 g/dL (3.0-4.8); ALT/SGPT 92 U/L (7-56); AST/SGOT 46 U/L (14-36); BLOOD UREA NITROGEN 19 mg/dL (7-21); CALCIUM 9.1 mg/dL (8.4-10.5); GFR AFRICAN-AMERICAN > 60; GFR NON-AFRICAN AMERICAN > 60
[2018-03-09] MEDS: Insulin Reg-LOW-Coverage SC SCH ×4 (08:00→21:23)
--- NOTE | 2018-03-09 08:24 | CON ---
Copied To: Greg Durán MD Attending MD: Greg Durán MD. ADDENDUM DATE: 03/08/2018 GASTROENTEROLOGY CONSULTATION I have personally examined this patient. This is an addendum to a consultation dictated by Natalie Hollins APN. This is an 82-year-old female with elevated liver enzymes. She is known to have E. coli bacteremia as well as recent ultrasound of the abdomen showing fatty liver. I agree with Natalie Hollins APN's assessment and recommendations. We will continue to follow her liver enzymes. Greg Durán MD
[2018-03-09] MEDS: diltiaZEM 180 mg/24 Hours CD Cap PO SCH (09:01)
[2018-03-09] MEDS: Cefepime IV 2 gm in NS 2 GM/100 ML BAG IVPB SCH (09:04)
--- NOTE | 2018-03-09 11:28 | CP.PCM.PN ---
Subjective - Date & Time of Evaluation Date of Evaluation: 03/09/18 Time of Evaluation: 10:00 - Subjective Subjective: S&E at bedside, chart reviewed, patient is OOB to chart no acute overnight events or complaints. Tolerating ora intake, and having BM, no diarrhea or overt GI bleeding. Hepatitis panel negative and LFT show downward trend. Objective - Vital Signs/Intake and Output Vital Signs (last 24 hours): Temp Pulse Resp BP Pulse Ox 94.4 F L 81 20 166/84 H 93 L 03/09/18 08:25 03/09/18 09:01 03/09/18 08:25 03/09/18 09:01 03/09/18 08:25 Intake and Output: 03/09/18 03/09/18 06:59 18:59 Intake Total 1560 2220 Output Total 70 800 Balance 1490 1420 - Medications Medications: Current Medications Acetaminophen (Tylenol 325mg Tab) 650 mg PO Q6H PRN PRN Reason: Fever >100.4 F Last Admin: 03/09/18 06:03 Dose: 650 mg Digoxin (Digoxin) 0.125 mg PO 1400 [facility] Last Admin: 03/08/18 14:58 Dose: 0.125 mg Diltiazem HCl (Cardizem Cd) 360 mg PO DAILY [facility] Last Admin: 03/09/18 09:01 Dose: 360 mg Insulin Human Regular (Humulin R Low) 0 units SC ACHS [facility] PRN Reason: Protocol Last Admin: 03/09/18 08:00 Dose: Not Given Levofloxacin (Levaquin) 750 mg PO DAILY [facility] PRN Reason: Protocol Losartan Potassium (Cozaar) 100 mg PO DAILY [facility] Last Admin: 03/09/18 09:02 Dose: 100 mg - Labs Labs: 03/09/18 06:45 03/09/18 06:45 PT 42.7 SECONDS (9.4-12.5) H 03/09/18 06:45 INR 3.62 H* 03/09/18 06:45 APTT 26.6 Seconds (25.1-36.5) 03/04/18 13:35 - Constitutional Appears: No Acute Distress - Head Exam Head Exam: NORMOCEPHALIC - Eye Exam Eye Exam: Normal appearance. absent: Scleral icterus - ENT Exam ENT Exam: Mucous Membranes Moist - Neck Exam Neck Exam: Normal Inspection - Respiratory Exam Respiratory Exam: NORMAL BREATHING PATTERN. absent: Respiratory Distress - Cardiovascular Exam Cardiovascular Exam: +S1, +S2 - GI/Abdominal Exam GI & Abdominal Exam: Soft, Normal Bowel Sounds. absent: Guarding, Tenderness, Rebound - Extremities Exam Extremities Exam: absent: Calf Tenderness - Neurological Exam Neurological Exam: Alert, Awake, Oriented x3 - Skin Skin Exam: Dry, Warm Assessment and Plan - Assessment and Plan (Free Text) Assessment: ASSESSMENT: Sepsis UTI, (+) E coli Elevated liver enzymes, may be multifactoral in the setting of sepsis and could consider medication induced, other to consider is hepatic congestion, does have h/o gallstones but total bilirubin and alkaline phosphatase are within normal limits, less likely. Atrial fibrillation Venous stasis dermatitis of LE Morbid Obesity Endometial cancer PLAN: trend LFT, on a downward trend hepatitis panel negative reviewed abdominal US 09/2107, (+) gallstones, fatty liver, CBD 5mm, no dilation continue diet as tolerated started on oral antibiotics: levaquin as per ID Coumadin currently on hold avoid hepatotoxic medication when at all possible Plan discussed w/ Dr. Sanchez. Case discussed w/ Dr. Durán covering Dr. Denton.
[2018-03-09] MEDS: levoFLOXacin 750 MG TAB PO SCH (14:00)
[2018-03-09] MEDS: Digoxin 125 mcg (0.125 mg) Tab PO SCH (14:36)
[2018-03-09 14:38] VITALS: PULSE 65
--- NOTE | 2018-03-09 14:38 | CP.PCM.PN ---
Subjective - Date & Time of Evaluation Date of Evaluation: 03/09/18 Time of Evaluation: 09:10 - Subjective Subjective: Feeling much better, no fevers, no dysuria, no flank pain, no nausea, no diarrhea. Objective - Vital Signs/Intake and Output Vital Signs (last 24 hours): Temp Pulse Resp BP Pulse Ox 98 F 73 20 150/80 97 03/08/18 16:44 03/08/18 18:00 03/08/18 16:44 03/08/18 16:44 03/08/18 16:44 Intake and Output: 03/08/18 03/09/18 18:59 06:59 Intake Total 360 Balance 360 - Medications Medications: Current Medications Acetaminophen (Tylenol 325mg Tab) 650 mg PO Q6H PRN PRN Reason: Fever >100.4 F Last Admin: 03/05/18 06:09 Dose: 650 mg Digoxin (Digoxin) 0.125 mg PO 1400 [facility] Last Admin: 03/08/18 14:58 Dose: 0.125 mg Diltiazem HCl (Cardizem Cd) 360 mg PO DAILY [facility] Last Admin: 03/08/18 09:07 Dose: 360 mg Cefepime HCl (Maxipime 2gm) 2 gm in 100 mls @ 100 mls/hr IVPB Q12 JANELL PRN Reason: Protocol Stop: 03/10/18 09:31 Last Admin: 03/08/18 09:08 Dose: 100 mls/hr Insulin Human Regular (Humulin R Low) 0 units SC ACHS [facility] PRN Reason: Protocol Last Admin: 03/08/18 17:32 Dose: 1 units Losartan Potassium (Cozaar) 100 mg PO DAILY [facility] Last Admin: 03/08/18 10:42 Dose: 100 mg - Labs Labs: 03/08/18 06:30 03/08/18 06:30 PT 48.5 SECONDS (9.4-12.5) H 03/08/18 06:30 INR 4.10 H* 03/08/18 06:30 APTT 26.6 Seconds (25.1-36.5) 03/04/18 13:35 - Constitutional Appears: Non-toxic, No Acute Distress, Chronically Ill - Head Exam Head Exam: NORMAL INSPECTION - ENT Exam ENT Exam: Mucous Membranes Moist - Neck Exam Neck Exam: absent: Meningismus - Respiratory Exam Respiratory Exam: Decreased Breath Sounds - Cardiovascular Exam Cardiovascular Exam: +S1, +S2 - GI/Abdominal Exam GI & Abdominal Exam: Soft. absent: Tenderness Assessment and Plan - Assessment and Plan (Free Text) Plan: Assessment sepsis due to urinary tract infection / pyelonephritis with E. coli, associated with bacteremia, clinically improving gram positive cocci in clusters in blood cx, R/O contamination history of right lower lobe community-acquired pneumonia with atypical bacteria Consider venous stasis dermatitis of both lower extremities with mild cellulitis R/O acute congestive heart failure DM HTN morbid obesity with BMI 47 atrial fibrillation history of UTI S/P left knee arthroscopy Plan on Cefepime day 6 - patient has been afebrile for more than 24 hours - will switch to PO Levaquin and can complete the total 10-14 days of antibiotics ( i.e. 4-8 more days of antibiotics) repeat blood cx are negative
--- NOTE | 2018-03-09 15:58 | PN ---
Copied To: Greg Durán MD Attending MD: Greg Durán MD ADDENDUM DATE: 03/09/2018 This is an addendum to a progress note performed by Natalie Hollins APN. The patient is comfortable. She denies any abdominal pain. The patient has E-coli septicemia from urosepsis. Her liver enzymes are trending down towards normal. Her AST today is 46. Her ALT is 92. Clinically, she is improving. Recommendations are to continue antibiotics and treatment of her urosepsis. Greg Durán MD
--- NOTE | 2018-03-09 16:24 | PN ---
Copied To: Bebe Sanchez MD Attending MD: Bebe Sanchez MD DATE: 03/09/2018 SUBJECTIVE: An 82-year-old female, resting comfortably this morning. Nursing staff states that there were no particular problems over the night or this morning. Blood pressure is 166/84, pulse is 81, temp is 94.4, oxygen sat is 93% on room air. The patient is feeling better today. She is currently receiving antibiotics for urinary tract infection, being followed by Infectious Disease. She is working with physical therapy. They are reporting an oxygen sat between 96-99% on room air at rest and with ambulation. She is currently on Cardizem, Cozaar, digoxin, sliding insulin scale, Levaquin and Tylenol. LABORATORY DATA: Shows a PT, INR of 42.7 and 3.62 respectively. CBC shows WBC of 9.7, RBC of 3.86, hemoglobin 11.1, hematocrit 32.7, platelet count is 300,000. Chemistry shows blood sugar of 141. Normal chemistries. BUN is 19, creatinine is 0.7. AST is trending down to 46, ALT is trending down to 92. Hepatitis panel has been negative. ASSESSMENT AND PLAN: Reports of Infectious Disease and GI noted. I will continue to follow the trend of the patient's LFTs on antibiotics at this time and follow up of PT, INR. Bebe Sanchez MD
[2018-03-10 06:58] VITALS: BP 152/65; RESP 20; TEMP 98.2; O2SAT 94
[2018-03-10 06:58] LABS: INR 3.39
[2018-03-10 07:16] LABS: ALBUMIN 3.4 g/dL (3.0-4.8); ALT/SGPT 79 U/L (7-56); AST/SGOT 47 U/L (14-36); BLOOD UREA NITROGEN 17 mg/dL (7-21); CALCIUM 9.2 mg/dL (8.4-10.5); GFR AFRICAN-AMERICAN > 60; GFR NON-AFRICAN AMERICAN > 60
[2018-03-10] MEDS: Insulin Reg-LOW-Coverage SC SCH (07:34)
[2018-03-10] MEDS: diltiaZEM 180 mg/24 Hours CD Cap PO SCH (09:02)
[2018-03-10] MEDS: levoFLOXacin 750 MG TAB PO SCH (09:03)
--- NOTE | 2018-03-10 11:30 | CP.PCM.PN ---
Subjective - Date & Time of Evaluation Date of Evaluation: 03/10/18 Time of Evaluation: 10:10 - Subjective Subjective: S&E at bedside, chart reviewed no acute overnight events. No N/V or abdominal pain. No fever or chills, no dysuria or hematuria. have BM no diarrhea or GI bleeding. No complaints, feeling better. Looking forward to discharge today. Objective - Vital Signs/Intake and Output Vital Signs (last 24 hours): Temp Pulse Resp BP Pulse Ox 98.2 F 73 20 152/65 H 94 L 03/10/18 06:00 03/10/18 09:02 03/10/18 06:00 03/10/18 09:02 03/10/18 06:00 Intake and Output: 03/10/18 03/10/18 06:59 18:59 Intake Total 4640 Balance 4640 - Medications Medications: Current Medications Acetaminophen (Tylenol 325mg Tab) 650 mg PO Q6H PRN PRN Reason: Fever >100.4 F Last Admin: 03/09/18 06:03 Dose: 650 mg Digoxin (Digoxin) 0.125 mg PO 1400 [facility] Last Admin: 03/09/18 14:36 Dose: 0.125 mg Diltiazem HCl (Cardizem Cd) 360 mg PO DAILY [facility] Last Admin: 03/10/18 09:02 Dose: 360 mg Insulin Human Regular (Humulin R Low) 0 units SC ACHS [facility] PRN Reason: Protocol Last Admin: 03/10/18 07:34 Dose: Not Given Levofloxacin (Levaquin) 750 mg PO DAILY [facility] PRN Reason: Protocol Last Admin: 03/10/18 09:03 Dose: 750 mg Losartan Potassium (Cozaar) 100 mg PO DAILY [facility] Last Admin: 03/10/18 09:03 Dose: 100 mg - Labs Labs: 03/09/18 06:45 03/10/18 06:30 PT 40.0 SECONDS (9.4-12.5) H 03/10/18 06:30 INR 3.39 03/10/18 06:30 APTT 26.6 Seconds (25.1-36.5) 03/04/18 13:35 - Constitutional Appears: No Acute Distress - Head Exam Head Exam: NORMOCEPHALIC - Eye Exam Eye Exam: Normal appearance. absent: Scleral icterus - ENT Exam ENT Exam: Mucous Membranes Moist - Neck Exam Neck Exam: Normal Inspection - Respiratory Exam Respiratory Exam: NORMAL BREATHING PATTERN. absent: Respiratory Distress - Cardiovascular Exam Cardiovascular Exam: +S1, +S2 - GI/Abdominal Exam GI & Abdominal Exam: Soft, Normal Bowel Sounds. absent: Guarding, Tenderness, Organomegaly, Rebound - Extremities Exam Extremities Exam: absent: Calf Tenderness - Neurological Exam Neurological Exam: Alert, Awake, Oriented x3 - Skin Skin Exam: Dry, Warm Assessment and Plan - Assessment and Plan (Free Text) Assessment: ASSESSMENT: UTI, (+) E coli Resolving Elevated liver enzymes, may be multifactoral in the setting of sepsis and could consider medication induced, other to consider is hepatic congestion, does have h/o gallstones but total bilirubin and alkaline phosphatase are within normal limits, less likely. Atrial fibrillation Venous stasis dermatitis of LE Morbid Obesity Endometrial cancer, pending oupt radiation treatment PLAN: trend LFT, on a downward trend hepatitis panel negative reviewed abdominal US 09/2107, (+) gallstones, fatty liver, CBD 5mm, no dilation continue diet as tolerated on oral antibiotics: levaquin as per ID on Cardizem avoid hepatotoxic medication when at all possible Plan discussed w/ Dr. Sanchez patient LFT continue to improve, patient planned to be sent home LFT to be followed outpatient. Case discussed w/ Dr. Durán covering Dr. D[place].
[2018-03-10 11:31] VITALS: PULSE 68
--- NOTE | 2018-03-10 11:39 | PN ---
Copied To: Johan Muse MD Attending MD: Johan Muse MD DATE: 03/10/2018 SUBJECTIVE: The patient is in bed, in no acute distress, nontoxic. PHYSICAL EXAMINATION: VITAL SIGNS: On exam, temperature is 98, blood pressure is 152/65, respiratory rate of 20, heart rate of 57. HEENT: Examination of HEENT is unremarkable. NECK: Supple. LUNGS: Have decreased breath sounds. HEART: Normal S1, S2. ABDOMEN: Soft, nontender. LABORATORY DATA: Laboratory examination reveals a white count of 9.7, hemoglobin of 11, platelets of 300. Chemistries are normal. The LFTs are mildly elevated. Urinalysis is reviewed with 25-30 wbc's. Hepatitis serology is negative. Microbiology reveals E. coli in the blood and E. coli in the urine. Repeat blood cultures are negative. The patient is currently on p.o. Levaquin. The E. coli in the blood is reported to be sensitive to Cipro. ASSESSMENT AND PLAN: An 82-year-old female, seen earlier today in room 360, bed 1, who was admitted with sepsis with Escherichia coli pyelonephritis and Escherichia coli bacteremia in a patient with morbid obesity, body mass index of 47 with atrial fibrillation, history of urinary tract infection. Currently on p.o. Levaquin, would complete a total of 10-14 days of antibiotics, in other words today is day #7 of antibiotics, would complete another 7 days of antibiotics for a total of 10-14 days. Johan Muse MD
== END 2018-03-10 11:33 | disposition home or self-care (01) | DRG 872 ==
LOC: ED 12:14 → ERH 14:19 → 3RNO 17:00
PROVIDERS: ADMIT Internal Medicine; ATTEND Internal Medicine
DX: A41.51 Sepsis due to Escherichia coli [E. coli] (principal); N12 Tubulo-interstitial nephritis, not specified as acute or chronic; L03.116 Cellulitis of left lower limb; L03.115 Cellulitis of right lower limb; Z68.42 Body mass index [BMI] 45.0-49.9, adult; I11.0 Hypertensive heart disease with heart failure; I50.9 Heart failure, unspecified; C54.1 Malignant neoplasm of endometrium; E11.65 Type 2 diabetes mellitus with hyperglycemia; I48.2 Chronic atrial fibrillation; K80.20 Calculus of gallbladder without cholecystitis without obstruction; I70.0 Atherosclerosis of aorta; I37.1 Nonrheumatic pulmonary valve insufficiency; I08.1 Rheumatic disorders of both mitral and tricuspid valves; E66.01 Morbid (severe) obesity due to excess calories; I87.2 Venous insufficiency (chronic) (peripheral); K76.0 Fatty (change of) liver, not elsewhere classified; H91.90 Unspecified hearing loss, unspecified ear; R79.1 Abnormal coagulation profile; Z79.01 Long term (current) use of anticoagulants; Z97.4 Presence of external hearing-aid; Z87.01 Personal history of pneumonia (recurrent); Z80.3 Family history of malignant neoplasm of breast